=== PATIENT | female | born 1945 | race Caucasian/White ===

== ENCOUNTER 2022-05-31 12:07 | Emergency (ER) | payer MEDICARE, SELFPAY ==
[2022-05-31 12:17] VITALS: BP 130/63; PULSE 78; RESP 20; TEMP 36.8; O2SAT 98; BMI 25.1
--- NOTE | 2022-05-31 12:35 | ED.NURSE ---
Addendum entered by Floresita Elam RN 05/31/22 12:46: Closer examination of tele monitor does show p waves, not atrial fibrillation Original Note: EKG done on arrival was NSR, while on plant assigner patient flipped a-fib.
[2022-05-31 12:43] VITALS: O2SAT 98
--- NOTE | 2022-05-31 12:46 | ED.GENADULT ---
HPI - General Adult General Chief complaint: Arrhythmia/Palpitations Stated complaint: Heart palpitations Time Seen by Provider: 05/31/22 12:17 Source: patient Mode of arrival: ambulatory Limitations: no limitations History of Present Illness HPI narrative: 77-year-old female coming in today concerned about a fast heart rate. She states that she has a little cuff that she bought at [employer], she uses it in the morning to check her blood pressure and heart rate. For the last several days the cuff has been telling her that she is in ?the danger zone unclear if this is in regards to her heart rate or her blood pressure. Patient does not feel that her heart is pounding, does not feel like it is going fast, does not feel like it is skipping a beat. She does not feel short of breath. She does state that she feels more tired than usual and she has felt this way for about a year. She describes it as having less pep than she used to. She denies any fevers or chills. No recent illness. She denies any chest pain. She does not exercise regularly. Patient states that she had atrial fibrillation once before, it appears that this was in 2019 and she converted back to normal sinus rhythm without any intervention right before reaching the ER. She does not believe she has had any episodes of atrial fibrillation since. She is quite symptomatic when that occurred back in 2019 with feeling dizzy and lightheaded, and with feeling her heart pounding in her chest. She denies any of those things today or for the last several days. Related Data Home Medications Medication Instructions Recorded Confirmed albuterol sulfate 90 mcg/actuation 2 puff inhalation Q4H PRN 05/31/22 05/31/22 aerosol inhaler azelastine 137 mcg (0.1 %) nasal 1 spray intranasal DAILY PRN 05/31/22 05/31/22 spray aerosol baclofen 10 mg tablet 10 mg PO DAILY PRN 05/31/22 05/31/22 mometasone 100 mcg/actuation HFA 2 puff inhalation Q12H PRN 05/31/22 05/31/22 aerosol inhaler (Asmanex HFA) Allergies Allergy/AdvReac Type Severity Reaction Status Date / Time No Known Drug Allergies Allergy Verified 05/31/22 12:24 Review of Systems Status of ROS: Reports: 10 or more systems reviewed and unremarkable except as noted in History and below [facility] Social History Smoking Status: Never smoker Do you use any of these nicotine containing products: None How often do you have a drink containing alcohol: never AUDIT-C Alcohol total score: 0 Non-prescribed substance use: denies use Exam Narrative: Exam Narrative: Well-nourished well-developed patient in no acute distress. Alert and oriented. Answers questions appropriately. Mood and affect are appropriate. Thoughts are goal oriented and rational. No tangential or magical thinking noted. Patient speaks in full sentences without needing to catch their breath. HEENT: Normocephalic atraumatic. Pupils are equally round reactive to light. Extraocular muscles are intact. Conjunctivae are moist without any icterus noted. Moist mucous membranes. Neck is soft without any lymphadenopathy or thyromegaly. No masses are appreciated. Cardiovascular: Heart is regular rate and rhythm S1 and S2 are present without any murmurs. Lungs: Clear to auscultation bilaterally no wheezes rhonchi or rales are appreciated. Patient takes deep breaths without any discomfort. Abdomen: Soft and nontender nondistended with normal bowel sounds. Extremities: Bilateral lower extremities are without edema. Normal DP and PT pulses. Skin: Well perfused without any obvious rashes. Const: Vital Signs, click to edit/add: Vital Signs - 24 hr 05/31/22 12:17 05/31/22 12:43 05/31/22 13:00 Temperature 98.2 F Pulse Rate [Left P ulse Oximeter] 78 60 Respiratory Rate 20 14 Blood Pressure [Le ft Upper Arm] 130/63 118/72 Pulse Oximetry 98 98 96 Oxygen Delivery Me thod Room Air Course Course Hospital Course: Patient remained asymptomatic while she was here. Her initial EKG showed normal sinus rhythm with a pulse of 66. The cardia monitor was quite sensitive today in with any movement would show a lot of a interference, therefore we did repeat an EKG which showed again normal sinus rhythm pulse 59. Never while she was here did she have a pulse faster than the upper 70s. Her lab work was unremarkable. Her blood pressure was within normal limits. Vital Signs Vital signs: Initial Vital Signs Temperature 98.2 F 05/31/22 12:17 Temperature Source Temporal Artery Scan 05/31/22 12:17 Pulse Rate 78 05/31/22 12:17 Respiratory Rate 20 05/31/22 12:17 Blood Pressure 130/63 05/31/22 12:17 Blood Pressure Mean 85 05/31/22 12:17 Blood Pressure Position Sitting 05/31/22 12:17 Pulse Oximetry 98 05/31/22 12:17 Oxygen Delivery Method 05/31/22 12:17 Vital Signs Temperature 98.2 F 05/31/22 12:17 Pulse Rate 78 05/31/22 12:17 Respiratory Rate 20 05/31/22 12:17 Blood Pressure 130/63 05/31/22 12:17 Pulse Oximetry 98 05/31/22 12:17 Oxygen Delivery Method 05/31/22 12:17 Temperature 98.2 F 05/31/22 12:17 Pulse Rate 60 05/31/22 13:00 Respiratory Rate 14 05/31/22 13:00 Blood Pressure 118/72 05/31/22 13:00 Pulse Oximetry 96 05/31/22 13:00 Oxygen Delivery Method 05/31/22 12:17 Medical Decision Making MDM Narrative Medical decision making narrative: 77-year-old female with fatigue for a year-likely normal given her age. It did request that she follow up with her primary care provider to discuss these symptoms further. Who presented because the blood pressure and heart monitor cuff that she purchased at [facility] is likely malfunctioning. She is reassured that her blood pressure and pulse have been normal while she was here. Medical Records Medical records reviewed: Yes I reviewed the patient's medical records Lab Data Lab results reviewed: Yes I reviewed the patient's lab results Labs: Lab Results 05/31/22 05/31/22 05/31/22 Range/Units 13:00 13:00 13:00 WBC 3.25 L (4.50-11.00) K/uL RBC 4.02 (4.00-5.20) m/uL Hgb 12.2 (12.0-16.0) gm/dL Hct 37.3 (33.0-51.0) % MCV 93 (80-100) fL MCH 30 (26-34) pg MCHC 33 (32-36) gm/dL RDW Coeff of Destiney 12.4 (11.5-15.5) % Plt Count 192 (140-440) K/uL Neut % (Auto) 57.5 (42.0-72.0) % Lymph % (Auto) 28.3 (20-44) % [place] % (Auto) 11.1 H (0.0-11.0) % Eos % (Auto) 2.5 (0.0-7.0) % Baso % (Auto) 0.6 (0.0-3.0) % Neut # (Auto) 1.90 (1.7-7.0) K/uL Lymph # (Auto) 0.90 (0.90-2.90) K/uL [place] # (Auto) 0.40 (0.00-0.90) K/UL Eos # (Auto) 0.10 (0.00-0.50) K/uL Baso # (Auto) 0.00 (0.00-0.30) K/uL Abs Immat Gran (auto) 0.00 (0.00-0.30) K/uL Sodium 138 (135-149) mmol/L Potassium 4.1 (3.6-5.1) mmol/L Chloride 106 (96-114) mmol/L Carbon Dioxide 25 (20-32) mmol/L BUN 17 (7-30) mg/dL Creatinine 0.7 (0.5-1.5) mg/dL Estimated Creat Clear 45.82 Estimated GFR 89 ml/min Glucose 94 (60-115) mg/dL Lactate 1.4 (0.5-1.9) mmol/L Calcium 9.3 (8.4-10.6) mg/dL Total Bilirubin 0.4 (0.1-1.5) mg/dL Direct Bilirubin 0.1 (0.0-0.5) mg/dL AST 20 (12-35) U/L ALT 11 (4-35) U/L Alkaline Phosphatase 79 (40-150) U/L Troponin I < 0.01 L (0.01-0.04) ng/mL Total Protein 6.8 (6.0-8.3) g/dL Albumin 4.0 (3.3-5.0) g/dL TSH (0.270-4.20) uIU/mL 05/31/22 Range/Units 13:00 WBC (4.50-11.00) K/uL RBC (4.00-5.20) m/uL Hgb (12.0-16.0) gm/dL Hct (33.0-51.0) % MCV (80-100) fL MCH (26-34) pg MCHC (32-36) gm/dL RDW Coeff of Destiney (11.5-15.5) % Plt Count (140-440) K/uL Neut % (Auto) (42.0-72.0) % Lymph % (Auto) (20-44) % [place] % (Auto) (0.0-11.0) % Eos % (Auto) (0.0-7.0) % Baso % (Auto) (0.0-3.0) % Neut # (Auto) (1.7-7.0) K/uL Lymph # (Auto) (0.90-2.90) K/uL [place] # (Auto) (0.00-0.90) K/UL Eos # (Auto) (0.00-0.50) K/uL Baso # (Auto) (0.00-0.30) K/uL Abs Immat Gran (auto) (0.00-0.30) K/uL Sodium (135-149) mmol/L Potassium (3.6-5.1) mmol/L Chloride (96-114) mmol/L Carbon Dioxide (20-32) mmol/L BUN (7-30) mg/dL Creatinine (0.5-1.5) mg/dL Estimated Creat Clear Estimated GFR ml/min Glucose (60-115) mg/dL Lactate (0.5-1.9) mmol/L Calcium (8.4-10.6) mg/dL Total Bilirubin (0.1-1.5) mg/dL Direct Bilirubin (0.0-0.5) mg/dL AST (12-35) U/L ALT (4-35) U/L Alkaline Phosphatase (40-150) U/L Troponin I (0.01-0.04) ng/mL Total Protein (6.0-8.3) g/dL Albumin (3.3-5.0) g/dL TSH 1.390 (0.270-4.20) uIU/mL ECG Data Attestation: I personally reviewed and interpreted this ECG as follows: (Normal sinus rhythm, pulse 66) Discharge Plan Discharge Clinical Impression: Normal blood pressure, Fatigue, Normal pulse Patient Disposition: Home, Self-Care Condition: Stable Additional Instructions: No abnormalities were noted while you were monitored in the hospital today. Your pulse and blood pressure have remained entirely normal. Your lab work was reassuring. As far as your fatigue this is likely normal given your age, however I do recommend that you follow-up with your primary care provider to discuss any further testing that they may recommend. Prescriptions: No Action baclofen 10 mg tablet 10 mg PO DAILY PRN albuterol sulfate 90 mcg/actuation HFA aerosol inhaler 2 puff INHALATION Q4H PRN azelastine 137 mcg (0.1 %) aerosol,spray 1 spray INTRANASAL DAILY PRN Asmanex HFA 100 mcg/actuation HFA aerosol inhaler 2 puff INHALATION Q12H PRN Follow Up/Referrals: Zahira Cason MD [Primary Care Provider] - Stand Alone Forms: [employer] Info Instructions
[2022-05-31 13:00] VITALS: BP 118/72; PULSE 60; RESP 14; O2SAT 96
[2022-05-31 13:09] LABS: Lactate* 1.4 mmol/L (0.5-1.9)
[2022-05-31 13:12] LABS: Basophils Percent Auto 0.6 % (0.0-3.0); Eosinophils Percent Auto 2.5 % (0.0-7.0); Hematocrit 37.3 % (33.0-51.0); Hemoglobin* 12.2 gm/dL (12.0-16.0); Lymphocytes Percent Auto 28.3 % (20-44); Mean Corpuscular HGB Conc 33 gm/dL (32-36); Mean Corpuscular Hemoglobin 30 pg (26-34); Mean Corpuscular Volume 93 fL (80-100); Monocytes Percent Auto 11.1 % (0.0-11.0); Neutrophils Percent Auto 57.5 % (42.0-72.0); Platelet Count* 192 K/uL (140-440); RDW Coefficient of Variation % 12.4 % (11.5-15.5); Red Blood Count 4.02 m/uL (4.00-5.20); White Blood Count* 3.25 K/uL (4.50-11.00)
[2022-05-31 13:18] LABS: Slide Review Reflex No
[2022-05-31 13:27] LABS: Chloride* 106 mmol/L (96-114); Potassium* 4.1 mmol/L (3.6-5.1); Sodium* 138 mmol/L (135-149)
[2022-05-31 13:29] LABS: Alkaline Phosphatase* 79 U/L (40-150); Aspartate Amino Transferase* 20 U/L (12-35); Bilirubin Direct* 0.1 mg/dL (0.0-0.5); Bilirubin Total* 0.4 mg/dL (0.1-1.5); Blood Urea Nitrogen* 17 mg/dL (7-30); Carbon Dioxide* 25 mmol/L (20-32); Creatinine* 0.7 mg/dL (0.5-1.5); Est. Creatinine Clearance* 45.82; Estimated Glomerular Filt Rate 89 ml/min; Glucose* 94 mg/dL (60-115); Total Protein* 6.8 g/dL (6.0-8.3)
--- OUTSIDE RECORDS SUMMARY | 2022-05-31 13:29 | XMS_ITS | Clinical Summary ---
:1945 Author Organization [email or web address] [facility] Address [place] [address] Care Team Providers Name Role Phone Ollie Lozano MD Unavailable Jag Koo PT Unavailable Unavailable Zahira Cason MD Primary Care Provider Allergies Active Allergy Reactions Severity Noted Date Comments Dust Mites 11/07/2008 Grass Pollen Cough 03/11/2016 Tree And Shrub Pollen Cough 03/11/2016 Medications Medication Sig Dispensed Refills Start End Date Status Date DME Firm mattress to 1 Device 0 Act lisha support the 0 lumbar degenerative disease. 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 (M51.37) lumbosacral (M47.816) intervertebral disc, Lumbar facet arthropathy albuterol HFA USE 2 8.5 g 1 Active (PRO-AIR; INHALATIONS FOUR 2 VENTOLIN; TIMES A DAY IF PROVENTIL) 90 NEEDED mcg/actuation inhalerIndications : Mild intermittent asthma without complication albuterol HFA Inhale 2 Puffs 3 Each 2 A ctive (PRO-AIR; by mouth every 4 2 VENTOLIN; hours if needed PROVENTIL) 90 for Shortness of mcg/actuation Breath 1st inhalerIndications choice (cough). : Cough mometasone Inhale by mouth. 3 Each 0 Ac tive (Asmanex HFA) 100 2 mcg/actuation HFAAIndications: Cough azelastine 137 Inhale 1 Tillson 90 mL 3 Active mcg/actuation into affected 2 (ASTELIN) nasal nostril(s) 2 sprayIndications: times daily. Cough mometasone 100 Inhale by mouth. 3 Each 3 Active mcg/actuation 2 puffs twice 2 HFAAIndications: daily Cough baclofen Take 1 Tablet 90 tablet. 3 Activ e (LIORESAL) 10 mg (10 mg) by mouth 2 tabletIndications: once daily if Degeneration of needed (muscle lumbar or spasm). lumbosacral intervertebral disc, Lumbar facet arthropathy traMADoL (ULTRAM) Take 1 Tablet 24 tablet. 0 Active 50 mg (50 mg) by mouth 2 tabletIndications: every 6 hours if Lumbar facet needed for Pain. arthropathy baclofen Take 1 Tablet 90 tablet. 3 05/15/20 Disco ntinued (LIORESAL) 10 mg (10 mg) by mouth 1 22 (Reorder tabletIndications: once daily if (E-cancel not Degeneration of needed. sent )) lumbar or lumbosacral intervertebral disc, Lumbar facet arthropathy traMADoL (ULTRAM) Take 1 Tablet 24 tablet. 0 0 Discontinued 50 mg (50 mg) by mouth 1 22 (Re order tabletIndications: every 6 hours if (E-cancel not Lumbar facet needed. sent)) arthropathy Active Problems Problem Noted Date Mild depression 07/05/2020 Paroxysmal atrial fibrillation 08/29/2019 Overview: Fall 2018 - started Elliquis. Gi bleed - colonoscopy polyps Elliquis stopped 08/24/2019 see cardiology notes Mixed hyperlipidemia 08/03/2012 Degeneration of cervical intervertebral disc 2 Lumbar facet arthropathy 02/06/2011 Migraine 01/08/2010 Benign neoplasm of colon 11/10/2008 Overview: Colonoscopy 10/2008 polyps repeat in 3 ye ars Colonoscopy 02/2016 polyp repeat in 5 yea rs Colonoscopy 06/2019 polyps, repeat in 5 years SVT (supraventricular tachycardia) 09/26/2008 Overview: A. Paroxysmal Chest pain, unspecified 09/26/2008 Overview: A. Atypical Insomnia, Unspecified 04/27/2008 Degeneration of lumbar or lumbosacral intervertebral d isc 04/24/2008 Unspecified asthma(493.90) 03/23/2007 Rosacea 03/23/2007 Symptomatic menopausal or female climacteric states Resolved Problems Problem Noted Date Resolved Date Backache, unspecified 04/24/2008 Encounters Date Type Specialty Care Team Description 05/15/2022 Ollie Blancas MD 03/25/2022 Nurse/Clinic Staff Immunizat ion/Injection Only (COVID-19 #4) 03/25/2022 Travel from Last 3 Months Immunizations Name Administration Dates Next Due COVID-19 vaccine (Jamgle 03/25/2022 30mcg/0.3mL) 12YO+ JOSE LUIS-SUCROSE PF, MDV COVID-19 vaccine ([facility]gle 08/13/2021, 11/07/2020, 30mcg/0.3mL) PF, MDV HepA-HepB (Twinrix) 03/27/2006, 09/22/2005, 08/19/2005 Influenza, IIV3 (Age >=3 years) 05/21/2010 Influenza, Inactivated AIIV4 (Age 65+ 07/25/2021, 07/05/2020 Years) Preserv Free Pneumococcal Poly,23-Valent (Pneumovax) 07/05/2020 Td (Age >=7 Years) 07/18/2003 Tdap 09/24/2010 Typhoid (injectable) 11/27/2010 Family History Medical History Relation Name Comments Heart Disease Father heavy smoker Cancer Maternal Aunt ovarian cancer a t age 89 yrs. Diabetes Mother later in life Cancer-breast Other Niece Heart Disease Paternal Aunt Other Sister emphysema, diagn osed 67yr, heavy smoker Cancer-ovarian No Family History Relation Name Status Comments Father Maternal Aunt Mother Other Niece Alive Paternal Aunt Sister Social History Tobacco Use Types Packs/Day Years Used Date Never Smoker Smokeless Tobacco: Never Used Tobacco Cessation: Counseling Given: Yes Alcohol Use Standard Drinks/Week Comments Yes 0 (1 standard drink = 0.6 oz pure alcoho l) twice weekly Alcohol Habits Answer Date Recorded How often do you have a drink containing alcohol? Monthly or less 06/21/2019 How many drinks containing alcohol do you have on a 1 or 2 06/21/2019 typical day when you are drinking? How often do you have six or more drinks on one Never 06/21/2019 occasion? Comment: twice weekly 12/12/2021 Sex Assigned at Date Recorded Not on file Obstetrics History Para Term AB IAB SAB Ectopic Multiple Living Live Births 2 1 1 1 1 Date Outcome GA Total Labor/2nd/3rd Weight Sex Delivery Anes PTL Lindsay A 1 A5 Name Clin Labor Ectopic Para Last Filed Vital Signs Vital Sign Reading Time Taken Comments Blood Pressure 117/71 12/30/2021 2:13 PM CDT tower Pulse 81 12/30/2021 2:13 PM CDT Temperature 37.2 ??C (98.9 ??F) 09/26/2021 1:07 PM RISK CONTROL ANALYST Respiratory Rate 16 08/24/2019 11:06 AM RISK CONTROL ANALYST Oxygen Saturation 100% 12/30/2021 2:13 PM CDT Inhaled Oxygen Concentration - - Weight 74.8 kg (164 lb 12.8 oz) 12/30/2021 2:13 PM CDT Height 166.5 cm (5' 5.55) 03/06/2021 3:15 PM CDT Body Mass Index 26.97 03/06/2021 3:15 PM CDT Plan of Treatment Upcoming Encounters Date Type Specialty Care Team Description 07/07/2022 Office Visit Ollie Lozano MD [address] [place], [place] [address] (Wo rk) Health Maintenance Due Date Last Done Comments Zoster (shingles) series for age 0702/20/1995 50+ (1 of 2) DEXA/DXA scan for age 65+ 2010 Tetanus booster 09/24/2020 09/24/2010, 07/18/2003 Pneumococcal series for age 65+ (2 07/05/2021 07/05/2020 - PCV) BMI (ht and wt on same day) for 03/06/2022 03/06/2021, 01/03/2020, age 18+ 08/12/2019 Depression screening for age 12+ 03/06/2022 03/06/2021, , 01/07/2018, Additional history exists Medicare Wellness for age 65+ 03/06/2022 03/06/2021, 2015, 08/03/2012 Influenza for age 65+ 04/17/2022 07/25/2021, 07/05/2020, 05/21/2010 COVID-19 vaccine series (5 - 05/20/2022 03/25/2022, 021, Booster for Pfizer series) 11/07/2020, Additiona l history exists Tdap Completed 09/24/2010 Hepatitis C screening for age Completed 03/06/2021 18-79 Results Not on filefrom Last 3 Months Insurance Payer Benefit Plan / Subscriber ID Effective Dates Phone Addre ss Type Group WC WORKERS WC LIBERTY [id number] 2020-Prese [phone] [address] [place] [address] UCARE MR ARE MEDICARE [id number] 2019-Presen PO [address] [place] [address] [facility] Effective for [address] ADVANT[address] [place] [address] Care Teams Export Sales Assistant Relationship Specialty Start Date End Date Zahira Cason MD PCP - General Family Practice 09/09/18 [address] [place] [address] Ollie Lozano MD Sports Medicine 01/22/16 [address] [place] [address] Jag Koo, PT Physical Therapist 01/22/16
[2022-05-31 13:30] LABS: Alanine Aminotransferase* 11 U/L (4-35); Calcium* 9.3 mg/dL (8.4-10.6)
[2022-05-31 13:47] LABS: Troponin I* < 0.01 ng/mL (0.01-0.04)
[2022-05-31 14:00] VITALS: BP 129/70; PULSE 58; RESP 12; O2SAT 98
== END 2022-05-31 14:47 | disposition home or self-care (01) ==
PROVIDERS: Emergency Provider Family Medicine; PCP Family Medicine
DX: R53.83 Other fatigue (principal)
CPT/HCPCS: 36415; 80048; 80076; 83605; 84443; 84484; 85025; 93005; 94761; 99284

== ENCOUNTER 2023-02-02 12:15 | Emergency (ER) | payer MEDICARE, SELFPAY ==
[2023-02-02 12:37] VITALS: BP 136/71; PULSE 59; RESP 16; TEMP 36.6; O2SAT 100; BMI 25.0
--- NOTE | 2023-02-02 14:30 | CRLHL7_ITS ---
For Patients: As a result of the Century Cures Act, medical imaging exams and procedure reports are released immediately into your electronic medical record. You may view this report before your referring provider. If you have questions, please contact your health care provider. INDICATION: Injury preceding week with worsening headache COMPARISON: None TECHNIQUE: CT examination of the head was performed as axial sections without intravenous contrast. Images were obtained from the vertex of the skull through the skull base. Please note that all CT scans at this facility use dose modulation, iterative reconstruction, and/or weight-based dosing when appropriate to reduce radiation dose to as low as reasonably achievable. FINDINGS: The brain shows no sign of mass lesion, mass effect, hemorrhage, or edema. There are involutional changes. There is mild cortical atrophy and there is mild white matter disease. There is no hydrocephalus. The visualized portions of the orbits are normal in appearance. The osseous structures are normal in appearance with no sign of abnormality in the skull base or calvarium. Incidental sinus inflammatory disease IMPRESSION: Involutional changes consisting volume loss and white matter disease. No posttraumatic findings. Incidental sinus mucosal inflammatory disease. Please note that all CT scans at this facility use dose modulation, iterative reconstruction, and/or weight-based dosing when appropriate to reduce radiation dose to as low as reasonably achievable. Dictated by Davey Henson MD @ 02/02/2023 3:38:05 PM (Electronically Signed)
--- NOTE | 2023-02-02 14:38 | ED_ITS ---
HPI - General Adult General Chief complaint: Head Injury/Pain Stated complaint: Hit head last week Time Seen by Provider: 02/02/23 13:39 History of Present Illness HPI narrative: 77-year-old woman presenting to the emergency department with concern of head injury. One week ago fell from her bed hitting her nightstand. Struck the right forehead. Did have 2 nice lumps but otherwise felt well. More recently has developed sense of fullness through the right side of her head in particular in into her neck. She is not anticoagulated. No diplopia. No visual affect otherwise. No nausea. And not particularly headache more this pressure is noted. Related Data Home Medications Medication Instructions Recorded Confirmed albuterol sulfate 90 mcg/actuation 2 puff inhalation Q4H PRN 05/31/22 02/02/23 aerosol inhaler azelastine 137 mcg (0.1 %) nasal 1 spray intranasal DAILY PRN 05/31/22 02/02/23 spray aerosol baclofen 10 mg tablet 10 mg PO DAILY PRN 05/31/22 02/02/23 mometasone 100 mcg/actuation HFA 2 puff inhalation Q12H PRN 05/31/22 02/02/23 aerosol inhaler (Asmanex HFA) Allergies Allergy/AdvReac Type Severity Reaction Status Date / Time No Known Drug Allergies Allergy Verified 02/02/23 12:37 Review of Systems Status of ROS: Reports: 6 or more systems reviewed and unremarkable except as noted in History and below [facility] Social History Smoking Status: Never smoker Do you use any of these nicotine containing products: None Second hand tobacco smoke exposure: No How often do you have a drink containing alcohol: 2-4 times a month How many standard drinks containing alcohol do you have on a typical day: 1 or 2 AUDIT-C Alcohol total score: 2 Non-prescribed substance use: denies use service: No Exam Narrative: Exam Narrative: Pleasant. NAD. Of good energy. Moving all extremities out difficulty. Well perfused peripherally. Breathing easily. Neck is supple and not tender though maybe a little sore on repeat exam to palpation in the bilateral trapezius and lower paracervical musculature. Does not have midline neck tenderness. There is yellowish purple bruising over the right forehead. I do not appreciate much swelling here. This is in an area of about 4 cm. Const: Vital Signs, click to edit/add: Vital Signs - 24 hr 02/02/23 12:37 Temperature 97.9 F Pulse Rate [Pulse Oximeter] 59 L Respiratory Rate 16 Blood Pressure [Ri ght Upper Arm] 136/71 Pulse Oximetry 100 Oxygen Delivery Me thod Room Air Documenting provider has reviewed patient's vital signs: yes Course Vital Signs Vital signs: Initial Vital Signs Temperature 97.9 F 02/02/23 12:37 Temperature Source Temporal Artery Scan 02/02/23 12:37 Pulse Rate 59 L 02/02/23 12:37 Pulse Rhythm Regular 02/02/23 12:37 Pulse Strength 3+ Normal 02/02/23 12:37 Respiratory Rate 16 02/02/23 12:37 Blood Pressure 136/71 02/02/23 12:37 Blood Pressure Mean 92 02/02/23 12:37 Blood Pressure Position Sitting 02/02/23 12:37 Pulse Oximetry 100 02/02/23 12:37 Oxygen Delivery Method Room Air 02/02/23 12:37 Vital Signs Temperature 97.9 F 02/02/23 12:37 Pulse Rate 59 L 02/02/23 12:37 Respiratory Rate 16 02/02/23 12:37 Blood Pressure 136/71 02/02/23 12:37 Pulse Oximetry 100 02/02/23 12:37 Oxygen Delivery Method Room Air 02/02/23 12:37 Temperature 97.9 F 02/02/23 12:37 Pulse Rate 59 L 02/02/23 12:37 Respiratory Rate 16 02/02/23 12:37 Blood Pressure 136/71 02/02/23 12:37 Pulse Oximetry 100 02/02/23 12:37 Oxygen Delivery Method Room Air 02/02/23 12:37 Medical Decision Making MDM Narrative Medical decision making narrative: Think it is reasonable to reimage. Certainly could have evolved intracranial hemorrhage. On review of head CT by me I see no acute abnormalities. Did depart emergency department prior to radiology over-read. Radiology over-read otherwise noting mucosal sinus disease. Monitored without event in the emergency department. See patient discharge plan Medical Records Medical records reviewed: Yes I reviewed the patient's medical records Discharge Plan Discharge Clinical Impression: Closed head injury, Cervical sprain Patient Disposition: Home, Self-Care Condition: Stable Additional Instructions: Gentle stretching a few times daily as demonstrated/discussed. I will call you if something seems amiss in your head CT. Prescriptions: No Action baclofen 10 mg tablet 10 mg PO DAILY PRN albuterol sulfate 90 mcg/actuation HFA aerosol inhaler 2 puff INHALATION Q4H PRN azelastine 137 mcg (0.1 %) aerosol,spray 1 spray INTRANASAL DAILY PRN Asmanex HFA 100 mcg/actuation HFA aerosol inhaler 2 puff INHALATION Q12H PRN Follow Up/Referrals: Zahira Cason MD [Referring] - Stand Alone Forms: [facility] Info Instructions
== END 2023-02-02 15:55 | disposition home or self-care (01) ==
PROVIDERS: Emergency Provider Family Medicine; PCP Student in an Organized Health Care Education/Training Program
DX: S16.1XXA Strain of muscle, fascia and tendon at neck level, initial encounter (principal); S09.90XA Unspecified injury of head, initial encounter; W18.09XA Striking against other object with subsequent fall, initial encounter
CPT/HCPCS: 70450; 99283; 99284

== ENCOUNTER 2023-09-23 18:05 | Emergency (ER) | payer MEDICARE, SELFPAY ==
[2023-09-23 18:52] VITALS: BP 154/63; PULSE 77; RESP 16; TEMP 36.3; O2SAT 99; BMI 24.3
--- NOTE | 2023-09-23 19:50 | ED_ITS ---
HPI - General Adult General Date Seen: 09/23/23 Chief complaint: Neuro Symptoms/Altered Deficit Stated complaint: Looking for head xray-she has hitting pain in L Time Seen by Provider: 09/23/23 19:50 History of Present Illness HPI narrative: 78-year-old female presenting to the ER today for evaluation of a left-sided headache. History is obtained from the patient, but is limited because she has a very poor historian and may have dementia. Per medical records: She was seen here in the ER last January for a head injury. Apparently had fallen 1 week prior to presentation and hit her head against her 9 hand, at that visit. According to the physician notes she was pleasant and in no distress. No mention of any confusion or disorientation. Head CT showed no evidence for any traumatic injury. She did so involutional changes and volume loss and white ma tter disease consistent with aging. She also had sinus mucosal inflammation. She was seen in the ER in May 2022 for fatigue. At that time her notes indicate that she was alert and oriented. Per the patient: History is very limited because the patient is a confusing historian. She does not even know what day it is today or what month it is. The best history I can get from her is as follows. She has been having intermittent headaches affecting the left side of her head, in the parietal region just above her left ear. They come ago without warning. They are very intense and sharp when they occur. They have been occurring ?off and on for a while. ? It sounds like maybe every couple of days for the past couple of weeks. I cannot get a clear pattern but it does sound like they are positional or related to any particular activity. They are fairly brief. They usually last just a few seconds or a few minutes. They feel like a stabbing. The patient says she is not having any other symptoms. When asked directly, she says no visual symptoms. No change in hearing. No tinnitus. No associated neck pain. She does recall that she apparently had a fall and injured her neck a couple of years ago(but is not having pain currently). No known head injury. No known fall. She does not know what medication she is on. She says she thinks she has a history of AFib, but does not know if she is anticoagulated. She lives alone. [place] the [place] out outside of [place] and is lived [place] horses[place] for 50 years. She does not think she has a carbon monoxide detector. No pain or numbness or tingling down her arms or legs. No focal weakness in her arms or legs. Her gait is steady today but she says sometimes she feels off balance especially when she gets up to go to the bathroom tonight. No abdominal pain. No trouble with urination. No cough. She does not feel short of breath. No chest pain. History by phone from her sister Jc : Does probably have mild dementia but is functional and able to care for herself at home. Is sometimes ?dingy. ?. Always pays her bills on time. This degree of disorientation (not knowing the date or the month) is highly unusual for her it is a change from when he saw each other recently. Related Data Home Medications Medication Instructions Recorded Confirmed albuterol sulfate 90 mcg/actuation 2 puff inhalation Q4H PRN 05/31/22 09/23/23 aerosol inhaler azelastine 137 mcg (0.1 %) nasal 1 spray intranasal DAILY PRN 05/31/22 02/02/23 spray aerosol baclofen 10 mg tablet 10 mg PO DAILY PRN 05/31/22 09/23/23 mometasone 100 mcg/actuation HFA 2 puff inhalation Q12H PRN 05/31/22 02/02/23 aerosol inhaler (Asmanex HFA) Allergies Allergy/AdvReac Type Severity Reaction Status Date / Time No Known Drug Allergies Allergy Verified 09/23/23 18:49 PFSH PFSH Social History Smoking Status: Never smoker Do you use any of these nicotine containing products: None Second hand tobacco smoke exposure: No How often do you have a drink containing alcohol: 2-4 times a month How many standard drinks containing alcohol do you have on a typical day: 1 or 2 AUDIT-C Alcohol total score: 2 Non-prescribed substance use: denies use service: No Exam Narrative: Exam Narrative: Constitutional: Appears well-developed and well-nourished. Alert. Conversant and very polite. At 1st, the patient seems very normal and conversant. However with further conversation, it becomes apparent that she clearly has impaired memory. Non toxic. HENT: Head: Atraumatic. No depressed skull fracture, Raccoon Eyes, Richards's sign, or hemotympanum. Face normal. TMs normal Nose: Nose normal. No purulent drainage Mouth/Throat: Oral mucosa is clear and moist. no trismus. Pharynx normal. Tonsils symmetric. No tonsillar enlargement, erythema, or exudate. Eyes: Conjunctivae normal. EOM normal. Pupils equal, round, and reactive to light. No scleral icterus. Neck: Normal range of motion. Neck supple. No tracheal deviation present. No posterior midline tenderness or step-off. No stiffness. No carotid bruits. Cardiovascular: Normal rate, regular rhythm. No gallop. No friction rub. No murmur heard. Symmetric radial artery pulses Pulmonary/Chest: Effort normal. No stridor. No respiratory distress. No wheezes. No rales. No rhonchi . No tenderness. Abdominal: Soft. Bowel sounds normal. No distension. No mass. No tenderness. No rebound. No guarding. No CVA tenderness. Musculoskeletal: No C, T, L-spine tenderness. RUE: Normal range of motion. No tenderness. No deformity LUE: Normal range of motion. No tenderness. No deformity RLE: Normal range of motion. No edema. No tenderness. No deformity LLE: Normal range of motion. No edema. No tenderness. No deformity Lymph: No cervical adenopathy. Neurological: Alert and oriented to person, but she is not oriented to date or month. Attention normal. GCS 15. Memory is impaired. She is not really able to describe events that happened today.. Speech fluent. Cognition is impaired. She is not able to do simple addition or subtraction. SLUMS score =9 (abnormal, indicates dementia). Cranial Nerves intact II-XII except I did not formally test gag or visual acuity. EOMI. Palate elevates symmetrically and tongue protrudes in the midline. Strength: 5/5 trapezius on the right and left 5/5 deltoid on the right and left 5/5 biceps on the right and left 5/5 triceps on the right and left 5/5 grain merchandiser on the right and left 5/5 thumb opposition on the right and le ft 5/5 finger abduction on the right and le ft 5/5 hip flexors (L3) on the right and le ft 5/5 quadriceps (L4) on the right and lef t 5/5 tibialis anterior on the right and l eft 5/5 EHL (L5) on the right and left 5/5 gastrocnemius (S1) on the right and left 5/5 hamstring on the right and left Sensation intact to light touch in both upper extremities (C4-T1) Sensation intact to light touch in Both lower extremities (L4-S1). Finger to nose and coordination normal. Gait normal and she is able to ambulate steadily under her own power from her hospital bed out to the ER hallway and back. Normal strength in both upper and lower extremities. CN II-VII intact. No sensory deficit. GCS eye subscore is 4. GCS verbal subscore is 5. GCS motor subscore is 6. Normal coordination . Normal finger to nose. She is not able to spell [place]. When asked her to attempt serial sevens, she simply says that she is not good at math and will not try. She is able to recall 3/5 objects at 1 minute. She is not able to do reversed digit recollec tion. Skin: Skin is warm and dry. No rash noted. No pallor. Normal capillary refill. Psychiatric: Normal mood. Normal affect. She is smiling and very polite. She jokes and makes light of many of her mistakes. For instance when she does not know the day or the month, she just chuckles that away. Const: Vital Signs, click to edit/add: Vital Signs - 24 hr 09/23/23 18:52 09/23/23 19:51 09/23/23 22:22 Temperature 97.4 F L Pulse Rate [Pulse Oximeter] 77 77 75 Respiratory Rate 16 Blood Pressure [Ri ght Upper Arm] 154/63 H 164/83 H 178/82 H Pulse Oximetry 99 98 99 Oxygen Delivery Me thod Room Air Room Air Room Air Course Vital Signs Vital signs: Initial Vital Signs Temperature 97.4 F L 09/23/23 18:52 Temperature Source Temporal Artery Scan 09/23/23 18:52 Pulse Rate 77 09/23/23 18:52 Respiratory Rate 16 09/23/23 18:52 Blood Pressure 154/63 H 09/23/23 18:52 Blood Pressure Mean 93 09/23/23 18:52 Blood Pressure Position Sitting 09/23/23 18:52 Pulse Oximetry 99 09/23/23 18:52 Oxygen Delivery Method Room Air 09/23/23 18:52 Vital Signs Temperature 97.4 F L 09/23/23 18:52 Pulse Rate 77 09/23/23 18:52 Respiratory Rate 16 09/23/23 18:52 Blood Pressure 154/63 H 09/23/23 18:52 Pulse Oximetry 99 09/23/23 18:52 Oxygen Delivery Method Room Air 09/23/23 18:52 Temperature 97.4 F L 09/23/23 18:52 Pulse Rate 75 09/23/23 22:22 Respiratory Rate 16 09/23/23 18:52 Blood Pressure 178/82 H 09/23/23 22:22 Pulse Oximetry 99 09/23/23 22:22 Oxygen Delivery Method Room Air 09/23/23 22:22 Medications Administered Medications: Discontinued Medications Generic Name Dose Route Start Last Admin Trade Name Abnerq PRN Reason Stop Dose Admin Cephalexin HCl 500 mg 09/23/23 22:11 09/23/23 23:38 Cephalexin 500 Mg Capsule PO 09/23/23 22:12 Not Given ONCE ONE Haloperidol Lactate 1.25 mg 09/23/23 22:24 09/23/23 22:39 Haloperidol 5 Mg/Ml Inj IV 09/23/23 22:25 1.25 mg ONCE ONE Administration Ceftriaxone Sodium 1 gm/ 100 mls @ 200 mls/hr 09/23/23 22:24 09/23/23 23:18 Sodium Chloride IVPB 09/23/23 22:25 Infused ONCE ONE Infusion Medical Decision Making MDM Narrative Medical decision making narrative: This is a very pleasant 78-year-old female presenting to the ER today on her own, by private vehicle from her house. She actually came in with a chief complaint of having headaches. She has been having intermittent fairly brief left parietal headaches off and on for the past several days or couple of weeks. She is not having a headache while she is here in the ER. In terms of the headache: Clinical history as best as I can get it from the patient with suggest possible trigeminal neuralgia. Broad differential is considered. There is no evidence for any head trauma, but head CT is obtained and is fortunately negative for any bleed or skull fracture. No evidence for any scalp infection or shingles. No evidence for otitis media or otitis externa on my exam. No evidence for mastoiditis. Consider carbon monoxide exposure since she lives alone but carboxyhemoglobin level is within normal range. No associated neck pain to suggest cervical artery dissection. Consider possible hemorrhagic or ischemic stroke. No evidence for hemorrhage on CT. No focal deficits on exam to suggest an acute ischemic stroke. If this were an ischemic stroke, there is no clear last known normal time so patient would not be a candidate for thrombolytics or intravascular intervention. Consider possible inpatient brain MRI more thoroughly evaluate for ischemia to look for other etiologies for memory loss. . No fever, leukocytosis, stiff neck to suggest ELECTRICAL INSTRUMENT REPAIRER infection. In fact, she is not actually having headache while she is here in the ER right now. Consider possible temporal arteritis however that the headache seems to be too far posterior to be related to jewish headache. I am not able to get any history that would suggest headache related to mastication or other jaw claudication at this time. In terms of her altered mental status: It sounds like she does have some chronic but mild memory loss and early dementia. This is acute she had from her baseline. Consider possible delirium. Sodium is normal electrolytes are well balanced. Kidney function normal. Blood sugar normal. LFTs and ammonia are normal. Coags such as PT are normal. Urinalysis at is abnormal showing 25 white cells per high-power field. Patient does not recall any previous history of urinary tract infections. Nor does her sister, Jc. This will require treatment with antibiotics. At this point she is hemodynamically stable, has a normal white count and is not febrile. No sepsis physiology. From a standpoint of purely UTI, she would be appropriate to treat at home with outpatient antibiotics. However, when you factor in her acute disorientation and altered mental status, she is clearly not remembering well enough to be reliable to take antibiotics at home. She also be high risk to get lost on her way home head or suffer an accident such as forgetting and leaving the stove on if discharged without adult supervision. We attempted to contact the patient's family to see if they would be able to care for her over the short term and make sure she can be safe at home. Unfortunately her sister, who lives close to her, in [place], is out of town in [place]. Her other closest relative is her daughter who lives in [place]. They tell me that her daughter can fly to [place] tomorrow to be with her mum, but no one can be with her tonight. Therefore hospitalization for initiation of treatment for her UTI as well as for safety in the setting of her dementia and confusion, is necessary. Unfortunately there are no open hospital beds here in [place] today. We are at capacity. Therefore transfer is indicated. Fortunately, we were able to arrange a bed for the patient at the nearest hospital, [facility], in [place]. Excepted by tele hospitalist, Dr. Ramirez. She will be transferred by EMS. Lab Data Labs: Lab Results 09/23/23 09/23/23 Range/Units 20:27 20:41 WBC 5.76 (4.50-11.00) K/uL RBC 4.33 (4.00-5.20) m/uL Hgb 13.1 (12.0-16.0) gm/dL Hct 41.2 (33.0-51.0) % MCV 95 (80-100) fL MCH 30 (26-34) pg MCHC 32 (32-36) gm/dL RDW Coeff of Destiney 12.7 (11.5-15.5) % Plt Count 213 (140-440) K/uL Neut % (Auto) 60.6 (42.0-72.0) % Lymph % (Auto) 26.0 (20-44) % [place] % (Auto) 11.6 H (0.0-11.0) % Eos % (Auto) 1.6 (0.0-7.0) % Baso % (Auto) 0.2 (0.0-3.0) % Neut # (Auto) 3.49 (1.7-7.0) K/uL Lymph # (Auto) 1.50 (0.90-2.90) K/uL [place] # (Auto) 0.70 (0.00-0.90) K/UL Eos # (Auto) 0.09 (0.00-0.50) K/uL Baso # (Auto) 0.01 (0.00-0.30) K/uL Abs Immat Gran (auto) 0.00 (0.00-0.30) K/uL Imm/Tot Granulo (auto) 0.0 % INR 0.93 (0.91-1.10) VBG pH 7.354 (7.32-7.43) VBG pCO2 48 (40-50) mmHG VBG pO2 32.3 (25-47) mmHG VBG HCO3 27 (21-28) mmol/L Carboxyhemoglobin 3.6 (0.0-5.0) % Sodium 137 (135-149) mmol/L Potassium 4.0 (3.6-5.1) mmol/L Chloride 105 (96-114) mmol/L Carbon Dioxide 23 (20-32) mmol/L Anion Gap 9 (7-15) mEq/L BUN 22 (7-30) mg/dL Creatinine 0.7 (0.5-1.5) mg/dL Estimated Creat Clear 45.09 Estimated GFR 88 ml/min Glucose 97 (60-115) mg/dL Lactate 1.2 (0.5-1.9) mmol/L Calcium 9.6 (8.4-10.6) mg/dL Total Bilirubin 0.5 (0.1-1.5) mg/dL AST 23 (12-35) U/L ALT 15 (4-35) U/L Alkaline Phosphatase 88 (40-150) U/L Ammonia < 9.0 L (13.1-30.0) umol/L Total Protein 7.1 (6.0-8.3) g/dL Albumin 4.3 (3.3-5.0) g/dL TSH 1.930 (0.270-4.200) uIU/mL Urine Color Yellow (Yellow) Urine Appearance Clear (Clear) Urine pH 5.5 (5.0-8.5) Ur Specific [place] 1.020 (1.000-1.030) Urine Protein Negative (Negative) Urine Glucose (UA) Negative (Negative) Urine Ketones Trace A (Negative) Urine Blood Trace-lysed A (Negative) Urine Nitrite Negative (Negative) Urine Bilirubin Negative (Negative) Urine Urobilinogen 0.2 (0.2-1.0) Ur Leukocyte Esterase 1+ A (Negative) Urine RBC 0-2 (0-2) Urine WBC 10-25 A (0-5) Ur Squamous Epith Cells Few (None-Few) Urine Bacteria Few A (None) Ethyl Alcohol < 0.01 L (0.01-0.03) % Discharge Plan Discharge Clinical Impression: Dementia, Headache, Acute UTI Prescriptions: No Action baclofen 10 mg tablet 10 mg PO DAILY PRN albuterol sulfate 90 mcg/actuation HFA aerosol inhaler 2 puff INHALATION Q4H PRN azelastine 137 mcg (0.1 %) aerosol,spray 1 spray INTRANASAL DAILY PRN Asmanex HFA 100 mcg/actuation HFA aerosol inhaler 2 puff INHALATION Q12H PRN Follow Up/Referrals: Lina Dean PA-C [Primary Care Provider] -
[2023-09-23 19:51] VITALS: BP 164/83; PULSE 77; O2SAT 98
--- NOTE | 2023-09-23 19:53 | CRLHL7_ITS ---
For Patients: As a result of the Cures Act, medical imaging exams and procedure reports are released immediately into your electronic medical record. You may view this report before your referring provider. If you have questions, please contact your health care provider. INDICATION: Headaches. Altered mental status TECHNIQUE: Noncontrast axial CT of the head is submitted. Compared to prior CT of the head from February 02, 2023. FINDINGS: Mild cerebral atrophy. The ventricles, sulci and gyri are of normal size, shape and contour for age and degree of atrophy. Midline structures are centrally located. No convincing evidence of suspicious intra- or extra-axial fluid collections. Mild patchy regions of decreased attenuation within the periventricular and subcortical white matter of both cerebral hemispheres. IMPRESSION: 1. No radiographic evidence of acute intracranial abnormalities. 2. Mild cerebral atrophy. 3. Mild supratentorial white matter changes that are non-specific, but statistically most likely related to chronic small vessel ischemic disease. Dictated by Lester Fam MD @ 09/23/2023 8:32:18 PM Please note that all CT scans at this facility use dose modulation, iterative reconstruction, and/or weight-based dosing when appropriate to reduce radiation dose to as low as reasonably achievable. Dictated by: Lester Fam MD @ 09/23/2023 20:32:24 (Electronically Signed)
--- NOTE | 2023-09-23 20:00 | ED.NURSE ---
Pt is disoriented and impulsively talkative during assessments, pt is unable to state the day, month, year, or even a recent holiday. MD Nicole notified of this finding.
--- OUTSIDE RECORDS SUMMARY | 2023-09-23 20:31 | XMS_ITS | Clinical Summary ---
Author Name Unknown Organization [facility] Address [place], [place] [address] Care Team Providers Care Industrial Organizational Psychologist Name Role Phone Ollie Lozano MD Unavailable [facility] PT Unavailable Unavailable Lina Dean Primary Care Provider [phone] Allergies Active Allergy Reactions Criticality Noted Date Comments Dust Mites 11/07/2008 Grass Pollen Cough 03/11/2016 Tree And Shrub Pollen Cough 03/11/2016 Medications Medication Sig Dispensed Refills Start Date End Date Status azelastine 137 mcg/actuation (ASTELIN) nasal sprayIndications:Cough Inhale 1 [place] into affected nostril(s) 2 times daily. 90 mL 3 022 Active mometasone 100 mcg/actuation HFAAIndications:Cough Inhale by mouth. 2 puffs twice daily 3 Each 3 022 Active baclofen (LIORESAL) 10 mg tabletIndications:Degen eration of lumbar or lumbosacral intervertebral disc,Lumbar facet arthropathy Take 1 Tablet (10 mg) by mouth once daily if needed (muscle spasm). 90 tablet. 3 022 Active estradioL (VAGIFEM) 10 mcg tab vaginal tabletIndications:Postm enopausal atrophic vaginitis Apply one tablet into vagina every night x 1 week then twice weekly M and TH 30 Tablet 1 023 Active medication order composerIndications:Men opause,Post-menopausal atrophic vaginitis Estriol 0.3% cream compounded. Apply 1 g intravaginally 1-2 times a week 30 g 2 023 Active alendronate (FOSAMAX) 70 mg tabletIndications:Age-r elated osteoporosis without current pathological fracture Take 1 Tablet (70 mg) by mouth once a week in the morning. Take on empty stomach with full glass of water. Do not lie down for 1 hr. 12 Tablet 3 023 Active cholecalciferol (Vitamin D-3) 2,000 unit capsuleIndications:Billie min D deficiency Take 1 Capsule (2,000 units) by mouth once daily. 90 Capsule 3 023 Active acetaminophen (TYLENOL) 325 mg tabletIndications:Statu s post dilation and curettage Take 1-2 Tablets (325-650 mg) by mouth every 4 hours if needed (mild pain). Max acetaminophen dose: 4000mg in 24 hrs. 100 Tablet 0 023 Active atorvastatin (LIPITOR) 10 mg tabletIndications:Pure hypercholesterolemia Take 1 Tablet (10 mg) by mouth at bedtime. 90 Tablet 2 023 Active traMADoL (ULTRAM) 50 mg tabletIndications:Lumba r facet arthropathy Take 1 Tablet (50 mg) by mouth every 6 hours if needed for Pain. 36 Tablet 0 024 Active albuterol HFA (PRO-AIR; VENTOLIN; PROVENTIL) 90 mcg/actuation inhalerIndications:Coug h INHALE 2 PUFFS BY MOUTH EVERY 4 HOURS NEEDED FOR SHORTNESS OF BREATH OR COUGH 6.7 g 1 024 Active albuterol HFA (PRO-AIR; VENTOLIN; PROVENTIL) 90 mcg/actuation inhalerIndications:Coug h Inhale 2 Puffs by mouth every 4 hours if needed for Shortness of Breath 1st choice (cough). 1 Each 0 023 2023 Discontinued Active Problems Problem Noted Date Diagnosed Date Abnormal uterine bleeding due to endometrial chel yp 12/28/2022 Vitamin D deficiency 11/27/2022 Mild depression 07/05/2020 Paroxysmal atrial fibrillation 08/29/2019 Overview: Fall 2018 - started Elliquis. Gi bleed - colonoscopy polyps Elliquis stopped 08/24/2019 see cardiology notes Mixed hyperlipidemia 08/03/2012 Degeneration of cervical intervertebral disc 06/2012 Lumbar facet arthropathy 02/06/2011 Migraine 01/08/2010 Benign neoplasm of colon 11/10/2008 Overview: Colonoscopy 10/2008 polyps repeat in 3 years Colonoscopy 02/2016 polyp repeat in 5 years Colonoscopy 06/2019 polyps, repeat in 5 years SVT (supraventricular tachycardia) 09/26/2008 Overview: A. Paroxysmal Chest pain, unspecified 09/26/2008 Overview: A. Atypical Insomnia, Unspecified 04/27/2008 Degeneration of lumbar or lumbosacral interverte bral disc 04/24/2008 Unspecified asthma(493.90) 03/23/2007 Rosacea 03/23/2007 Symptomatic menopausal or female climacteric sta benjamin 03/23/2007 Resolved Problems Problem Noted Date Diagnosed Date Resolved Date Backache, unspecified 2007 Encounters Date Type Department Care Team Description 09/21/2023 Refill [facility] [address] [place] [address] Lina Dean PA Refill Request (Albuterol inhaler ) 09/20/2023 Refill [facility] [address] [place] [address] Lina Dean PA Refill Request (Albuterol Hfa) 08/18/2023 Refill [facility] [address] [place] [address] Ollie Lozano MD Refill Request from Last 3 Months Immunizations Name Administration Dates Next Due COVID-19 vaccine (Pfizer-Bio NTech 30mcg/0.3mL) 12YO+ BIVALENT PF, MDV 10/20/2022 COVID-19 vaccine (Pfizer-Bio NTech 30mcg/0.3mL) 12YO+ JOSE LUIS-SUCROSE PF, MDV 03/25/2022 COVID-19 vaccine (Pfizer-Bio NTech 30mcg/0.3mL) PF, MDV 08/13/2021,11/07/2020,10/17/2020 HepA-HepB (Twinrix) 03/27/2006,09/22/2005,2005 Influenza, IIV3 (Age >=3 years) 05/21/2010 Influenza, Inactivated AIIV4 (Age 65+ Years) Preserv Free 07/25/2021,07/05/2020 Pneumococcal Conj 20-valent (Prevnar 20) 023 Pneumococcal Poly,23-Valent (Pneumovax) 07/05/20 20 Td (Age >=7 Years) 07/18/2003 Tdap 09/24/2010 Typhoid (injectable) 11/27/2010 Family History Medical History Relation Name Comments Heart Disease Father heavy smoker Cancer Maternal Aunt ovarian cancer at age 89 yrs. Diabetes Mother later in life Cancer-breast Other Niece Heart Disease Paternal Aunt Other Sister emphysema, diag nosed 67yr, heavy smoker Cancer-ovarian No Family History Relation Name Status Comments Father Maternal Aunt Mother Other Niece Alive Paternal Aunt Sister Social History Tobacco Use Types Packs/Day Years Used Date Smoking Tobacco: Never Smokeless Tobacco: Never Tobacco Cessation:Counseling Given: Yes Alcohol Use Standard Drinks/Week Comments Yes 0 (1 standard drink = 0.6 oz pur e alcohol) Occasionally PHQ-2 Answer Date Recorded PHQ-2 TOTAL SCORE 0 10/20/2022 Social Connections Answer Date Recorded Frequency of Communication with Friends and Fami ly Not on file 12/15/2022 Financial Resource Strain Answer Date R ecorded Difficulty of Paying Living Expenses 3 12/12/2021 Difficulty of Paying Living Expenses Not on file 12/12/2021 Food Insecurity Answer Date Recorded Worried About Running Out of Food in the Last Ye ar 1 12/12/2021 Transportation Needs Answer Date Record ed Lack of Transportation (Medical) 1 12/12/2021 Housing Stability Answer Date Recorded Unable to Pay for Housing in the Last Year 1 12/12/2021 Sex and Gender Information Value Date Recorded Sex Assigned at Not on file Gender Identity Not on file Sexual Orientation Not on file Obstetrics History Para Term AB IAB SAB Ectopic Multiple Livin g Live Births 2 1 1 1 1 Date Outcome GA Total Labor Labor/2nd/3rd Weight Sex Delivery Anes PTL Lindsay A1 A5 Name Cl in Ectopic Para Last Filed Vital Signs Vital Sign Reading Time Taken Comments Blood Pressure 116/57 12/29/2022 11:15 AM CDT Pulse 58 12/29/2022 11:15 AM CDT Temperature 36.4 ??C (97.5 ??F) 12/29/2022 10:33 AM C DT Respiratory Rate 20 12/29/2022 10:33 AM CDT Oxygen Saturation 99% 12/29/2022 11:15 AM CDT Inhaled Oxygen Concentration - - Weight 73.3 kg (161 lb 8 oz) 12/29/2022 8:51 AM CDT Height 170.2 cm (5' 7) 12/29/2022 8:51 AM CDT Body Mass Index 25.29 12/29/2022 8:51 AM CDT Plan of Treatment Health Maintenance Due Date Last Done Comments Zoster (shingles) series for age 50+ (1 of 2) 1995 Tetanus booster 09/24/2020 09/24/2010, 07/18/2003 COVID-19 vaccine series ( season) 2023 10/20/2022, 03/25/2022, 08/13/2021, Additional history exists Influenza for age 65+ 04/17/2023 07/25/2021 , 07/05/2020, 05/21/2010 Medicare Wellness for age 65+ 10/21/2023, 03/06/2021, 01/22/2016, Additional history exists Depression screening for age 12+ 10/23/2023 10/22/2022, 10/20/2022, 10/20/2022, Additional history exists BMI (ht and wt on same day) for age 18+ 12/24/2023 12/23/2022, 11/19/2022, 10/20/2022, Additional history exists Tdap Completed 09/24/2010 Hepatitis C screening for ag e 18-79 Completed 03/06/2021 DEXA/DXA scan for age 65+ Completed 10/20/2022 Pneumococcal series for age 65+ Completed , 07/05/2020 Advance Directives Latest Code Status on File Code Status Date Activated Date Inactivated Comments Full Code 12/29/2022 8:41 AM 12/29/2022 1:38 PM Question Answer Comments Code Status Discussion: Reviewed Preferences Care Teams Industrial Organizational Psychologist Relationship Specialty Start Date End Date Lina Dean PA [address] [place] [address] PCP - General Physician Cab Driver 12/23/22 Ollie Lozano MD [address] [place] [address] Sports Medicine 01/22/16 Jag [facility] PT Physical Therapist 01/22/16
[2023-09-23 20:38] LABS: HCO3 VBG 27 mmol/L (21-28); Hematocrit 41.2 % (33.0-51.0); Hemoglobin* 13.1 gm/dL (12.0-16.0); Lactate* 1.2 mmol/L (0.5-1.9); Mean Corpuscular HGB Conc 32 gm/dL (32-36); Mean Corpuscular Hemoglobin 30 pg (26-34); Mean Corpuscular Volume 95 fL (80-100); Neutrophils Percent Auto 60.6 % (42.0-72.0); PCO2 VBG 48 mmHG (40-50); PO2 VBG 32.3 mmHG (25-47); Platelet Count* 213 K/uL (140-440); RDW Coefficient of Variation % 12.7 % (11.5-15.5); Red Blood Count 4.33 m/uL (4.00-5.20); White Blood Count* 5.76 K/uL (4.50-11.00); pH VBG 7.354 (7.32-7.43)
[2023-09-23 20:39] LABS: Basophils Absolute Auto 0.01 K/uL (0.00-0.30); Basophils Percent Auto 0.2 % (0.0-3.0); Eosinophils Absolute Auto 0.09 K/uL (0.00-0.50); Eosinophils Percent Auto 1.6 % (0.0-7.0); Monocytes Percent Auto 11.6 % (0.0-11.0); Neutrophils Absolute Auto 3.49 K/uL (1.7-7.0)
[2023-09-23 20:41] LABS: Slide Review Reflex No
[2023-09-23 20:59] LABS: Carboxyhemoglobin* 3.6 % (0.0-5.0)
[2023-09-23 20:59] LABS: INR 0.93 (0.91-1.10)
[2023-09-23 21:02] LABS: Appearance Urine Clear (Clear); Bilirubin Urine Negative (Negative); Blood Urine Trace-lysed (Negative); Color Urine Yellow (Yellow); Glucose Urine Negative (Negative); Ketones Urine Trace (Negative); Leukocyte Esterase Urine 1+ (Negative); Nitrite Urine Negative (Negative); Protein Urine Negative (Negative); Urobilinogen Urine 0.2 (0.2-1.0); pH Urine 5.5 (5.0-8.5)
[2023-09-23 21:06] LABS: Ammonia* < 9.0 umol/L (13.1-30.0); Ethanol* < 0.01 % (0.01-0.03)
[2023-09-23 21:39] LABS: Anion Gap 9 mEq/L (7-15); Blood Urea Nitrogen* 22 mg/dL (7-30); Carbon Dioxide* 23 mmol/L (20-32); Chloride* 105 mmol/L (96-114); Creatinine* 0.7 mg/dL (0.5-1.5); Est. Creatinine Clearance* 45.09; Estimated Glomerular Filt Rate 88 ml/min; Sodium* 137 mmol/L (135-149)
[2023-09-23 21:40] LABS: Alanine Aminotransferase* 15 U/L (4-35); Albumin* 4.3 g/dL (3.3-5.0); Alkaline Phosphatase* 88 U/L (40-150); Aspartate Amino Transferase* 23 U/L (12-35); Bilirubin Total* 0.5 mg/dL (0.1-1.5); Calcium* 9.6 mg/dL (8.4-10.6); Glucose* 97 mg/dL (60-115); Total Protein* 7.1 g/dL (6.0-8.3)
[2023-09-23 21:52] LABS: RBC Urine 0-2 (0-2)
[2023-09-23 21:53] LABS: Bacteria Urine Few; Squamous Epithelial Cell Urine Few (None-Few)
[2023-09-23 22:00] VITALS: O2SAT 99
[2023-09-23 22:22] VITALS: BP 178/82; PULSE 75; O2SAT 99
[2023-09-23] MEDS: HALOPERIDOL 5 MG/ML INJ 1.25 MG IV (22:39)
--- NOTE | 2023-09-23 22:39 | ED.NURSE ---
Pt is becoming noticeably more confused and disoriented. Pt is repeating questions every few mins: repeatedly asking when she can go home, repeatedly asking if her bladder infection is contagious, etc. Pt is still pleasant and cooperative. updated.
[2023-09-23] MEDS: cefTRIAXone 1 GM in 0.9 % SODIUM CHLORIDE Mini-bag 100 ML IVPB (22:45)
--- NOTE | 2023-09-23 23:51 | ED.NURSE ---
nurse to nurse report given to Alysha GARCIA at [facility]. pt assigned to [phone]. call back number is [phone]
--- NOTE | 2023-09-23 23:57 | ED.NURSE ---
updated dtr mela on pt transfer to [facility].
[2023-09-24 00:59] VITALS: BP 154/77; PULSE 71; RESP 16; TEMP 36.7; O2SAT 99
[2023-09-24 02:00] VITALS: BP 141/74; PULSE 69; RESP 16; TEMP 36.7; O2SAT 99
[2023-09-24 03:02] VITALS: BP 141/74; PULSE 69; RESP 16; TEMP 36.7
== END 2023-09-24 02:00 | disposition other institution (70) ==
PROVIDERS: Emergency Provider Emergency Medicine; PCP Student in an Organized Health Care Education/Training Program
DX: F03.90 Unspecified dementia, unspecified severity, without behavioral disturbance, psychotic disturbance, mood disturbance, and anxiety (principal); R51.9 Headache, unspecified; N39.0 Urinary tract infection, site not specified
CPT/HCPCS: 36415; 70450; 80053; 81001; 82077; 82140; 82375; 82803; 83605; 84443; 85025; 85610; 87040; 87086; 94761; 96365; 96375; 99285; J0696; J1630

== ENCOUNTER 2023-09-24 02:09 | Outpatient (CLI) | payer MEDICARE, SELFPAY ==
--- OUTSIDE RECORDS SUMMARY | 2023-09-25 17:30 | XMS_ITS | Clinical Summary ---
Author Name Unknown Organization [facility] Address [place], [place] [address] Care Team Providers Care Manager Wound Name Role Phone Ollie Lozano MD Unavailable Jag Koo PT Unavailable Unavailable Lina Dean Primary Care Provider [phone] Allergies Active Allergy Reactions Criticality Noted Date Comments Dust Mites 11/07/2008 Grass Pollen Cough 03/11/2016 Tree And Shrub Pollen Cough 03/11/2016 Medications Medication Sig Dispensed Refills Start Date End Date Status medication order composerIndications:Men opause,Post-menopausal atrophic vaginitis Estriol 0.3% cream compounded. Apply 1 g intravaginally 1-2 times a week 30 g 2 023 Active cholecalciferol (Vitamin D-3) 2,000 unit [...] OR COUGH 6.7 g 1 024 Active cefuroxime axetil (CEFTIN) 500 mg tabletIndications:Urina ry tract infection without hematuria, site unspecified Take 1 Tablet (500 mg) by mouth two times daily for 5 days. 10 Tablet 0 024 2023 Active carbamide peroxide (DEBROX) 6.5 % otic solutionIndications:Imp acted cerumen, unspecified laterality Place 5 Drops into both ears two times daily for 5 days. 15 mL 0 024 2023 Active azelastine 137 mcg/actuation (ASTELIN) nasal sprayIndications:Cough Inhale 1 [place] into affected nostril(s) 2 times daily. 90 mL 3 022 2023 Discontinued(P harmacist change per medication history (E-cancel not sent)) mometasone 100 mcg/actuation HFAAIndications:Cough Inhale by mouth. 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 90 tablet. 3 022 2023 Discontinued(P harmacist change per medication history (E-cancel not sent)) estradioL (VAGIFEM) 10 mcg tab vaginal tabletIndications:Postm enopausal atrophic vaginitis Apply one tablet into vagina every night x 1 week then twice weekly M and TH 30 Tablet 1 023 2023 Discontinued(P harmacist change per medication history (E-cancel not sent)) alendronate (FOSAMAX) 70 mg tabletIndications:Age-r elated osteoporosis without current pathological fracture Take 1 Tablet (70 mg) by mouth once a week in the morning. Take on empty stomach with full glass of water. Do not lie down for 1 hr. 12 Tablet 3 023 2023 Discontinued(P harmacist change per medication history (E-cancel not sent)) albuterol HFA (PRO-AIR; VENTOLIN; PROVENTIL) 90 mcg/actuation inhalerIndications:Coug h Inhale 2 Puffs by mouth every 4 hours if needed for Shortness of Breath 1st choice (cough). 1 Each 0 023 2023 Discontinued Active Problems Problem Noted Date Diagnosed Date Acute cystitis 09/24/2023 Closed head injury 09/24/2023 Fatigue 09/24/2023 Abnormal uterine bleeding due to endometrial chel [...] Encounters Date Type Department Care Team Description 09/24/2023 2:46 AM PROFESSOR OF GEOGRAPHY - 09/25/2023 1:00 PM [facility] [[email or web address] Hospital Encounter [facility] [address] [place] [address] Kevin Christiansen MD Cudak, Austin Christopher, DO Urinary tract infection without hematuria, site unspecified (Primary Dx); Impacted cerumen, unspecified laterality; Memory impairment Discharge Disposition: Home Self Care 09/24/2023 Orders Only [facility] Scanner 1 scan: (1-Ord) INCOMING RECORDS-CT, [facility], 09/24/2023 09/24/2023 Travel 09/21/2023 Refill [facility] [address] [place] [address] Lina Dean PA Refill Request (Albuterol inhaler ) 09/20/2023 Refill [facility] [address] [place] [address] Lina Dean PA Refill Request (Albuterol Hfa) 08/18/2023 Refill [facility] [address] [place] [address] Ollie Lozano MD Refill Request from Last [...] of Communication with Friends and Fami ly 0 09/24/2023 Financial Resource Strain Answer Date R ecorded Difficulty of Paying Living Expenses 3 09/24/2023 Difficulty of Paying Living Expenses Not on file 09/24/2023 Food Insecurity Answer Date Recorded Worried About Running Out of Food in the Last Ye ar 1 09/24/2023 Transportation Needs Answer Date Record ed Lack of Transportation (Medical) 1 09/24/2023 Housing Stability Answer Date Recorded Unable to Pay for Housing in the Last Year 1 09/24/2023 Sex and Gender Information Value Date Recorded [...] Sign Reading Time Taken Comments Blood Pressure 138/83 09/25/2023 8:14 AM PROFESSOR OF GEOGRAPHY Pulse 73 09/25/2023 8:14 AM PROFESSOR OF GEOGRAPHY Temperature 36.8 ??C (98.2 ??F) 09/25/2023 8:14 AM CS T Respiratory Rate 16 09/25/2023 8:14 AM PROFESSOR OF GEOGRAPHY Oxygen Saturation 96% 09/25/2023 8:14 AM PROFESSOR OF GEOGRAPHY Inhaled Oxygen Concentration - - Weight 73.9 kg (162 lb 14.4 oz) 09/24/2023 2:54 AM PROFESSOR OF GEOGRAPHY Height 170.2 cm (5' 7) 12/29/2022 8:51 AM CDT Body Mass Index 25.51 12/29/2022 8:51 AM CDT Plan of Treatment Upcoming Encounters Date Type Department Care Team (Late st Contact Info) Description 09/30/2023 11:35 AM PROFESSOR OF GEOGRAPHY Office Visit [facility] [address] [place] [address] Lina Dean PA [address] [place] [address] 02/16/2024 8:30 AM CDT Office Visit [facility] [address] [place] [address] Dada Sood, PhD, LP [address] [place] [address] Health Maintenance Due Date Last Done Comments [...] 10/20/2022 Pneumococcal series for age 65+ Completed 3, 07/05/2020 Procedures Procedure Name Priority Date/Time Associated Diagnosis Comments MR HEAD BRAIN WO STAT 09/25/2023 8:40 AM PROFESSOR OF GEOGRAPHY HEMOGLOBIN Early AM 09/25/2023 6:01 AM PROFESSOR OF GEOGRAPHY WHITE BLOOD COUNT Early AM 09/25/2023 6:0 1 AM PROFESSOR OF GEOGRAPHY CREATININE Early AM 09/25/2023 6:01 AM PROFESSOR OF GEOGRAPHY POTASSIUM Early AM 09/25/2023 6:01 AM PROFESSOR OF GEOGRAPHY SODIUM Early AM 09/25/2023 6:01 AM PROFESSOR OF GEOGRAPHY AMMONIA Early AM 09/25/2023 6:00 AM PROFESSOR OF GEOGRAPHY BLOOD GAS,VENOUS Early AM 09/25/2023 6:00 AM PROFESSOR OF GEOGRAPHY HEPATIC FUNCTION PANEL TAYLOR 09/24/2023 5:46 AM PROFESSOR OF GEOGRAPHY TSH TAYLOR 09/24/2023 5:46 AM PROFESSOR OF GEOGRAPHY MAGNESIUM TAYLOR 09/24/2023 5:46 AM PROFESSOR OF GEOGRAPHY CBC W PLT NO DIFF Early AM 09/24/2023 5:4 6 AM PROFESSOR OF GEOGRAPHY BASIC METABOLIC PANEL Early AM 09/24/2023 5:46 AM PROFESSOR OF GEOGRAPHY SCAN CORRESP-IMAGING 09/24/2023 12:00 AM PROFESSOR OF GEOGRAPHY from Last 3 Months Results * MR HEAD BRAIN WO (09/25/2023 8:40 AM PROFESSOR OF GEOGRAPHY) Anatomical Region Laterality Modality BRAIN, HEAD Magnetic Resonan ce 09/25/2023 8:52 AM PROFESSOR OF GEOGRAPHY Narrative 09/25/2023 8:52 AM PROFESSOR OF GEOGRAPHY For Patients: ??As a result of the Cures Act, medical imaging exams and procedure reports are released immediately into your electronic medical record. ??You may view this report before your referring provider. ??If you have questions, please contact your health care provider. Indication: Headache, mental status change Technique: Multiplanar, multisequence MRI of the brain obtained without contrast. Comparison: CT head report 09/23/2023, MRI brain 12/06/2017 Findings: The ventricles and cortical sulci are slightly prominent, compatible with generalized cerebral volume loss. No hydrocephalus or herniation. No acute/subacute ischemia, intracranial hemorrhage or abnormal extra-axial fluid collection. A few punctate FLAIR hyperintense foci are noted throughout the supratentorial white matter, similar to 2019. Midline structures are unremarkable. Major expected intracranial flow voids are visualized. Bone marrow signal is unremarkable. No suspicious findings in the regional soft tissues. Small mucous retention cysts/polyps along the inferior maxillary sinuses. Normal signal throughout the mastoid air cells. Bilateral temporal staphylomas and lens implants. Impression : 1. No evidence of acute intracranial abnormality, or significant interval change related to 12/06/2018. 2. A few scattered foci of FLAIR signal abnormality are noted throughout the supratentorial white matter, stable. These are nonspecific, but can be seen in the setting of migraine headaches, previous trauma, or mild chronic microangiopathy. 3. Bilateral temporal staphylomas, stable. Dictated by Delma Dodson MD @ 09/25/2023 8:52:49 AM (Electronically Signed) Procedure Note Delma Dodson, - 09/25/2023 For Patients: As a result of the Cures Act, medical imagingexams and procedure reports are released immediately into your electronicmedical record. You may view this report before your referring provider.If you have questions, please contact your health care provider. Indication: Headache, mental status change Technique: Multiplanar, multisequence MRI of the brain obtained without contrast. Comparison: CT head report 09/23/2023, MRI brain 12/06/2017 Findings: The ventricles and cortical sulci are slightly prominent, compatible withgeneralized cerebral volume loss. No hydrocephalus or herniation. Noacute/subacute ischemia, intracranial hemorrhage or abnormal extra-axialfluid collection. A few punctate FLAIR hyperintense foci are notedthroughout the supratentorial white matter, similar to 2019. Midline structures are unremarkable. Major expected intracranial flowvoids are visualized. Bone marrow signal is unremarkable. No suspiciousfindings in the regional soft tissues. Small mucous retention cysts/polypsalong the inferior maxillary sinuses. Normal signal throughout the mastoidair cells. Bilateral temporal staphylomas and lens implants. Impression : 1. No evidence of acute intracranial abnormality, or significant intervalchange related to 12/06/2018. 2. A few scattered foci of FLAIR signal abnormality are noted throughoutthe supratentorial white matter, stable. These are nonspecific, but can beseen in the setting of migraine headaches, previous trauma, or mildchronic microangiopathy. 3. Bilateral temporal staphylomas, stable. Dictated by Delma Dodson MD @ 09/25/2023 8:52:49 AM (Electronically Signed) Glenn Baca DO MR * WHITE BLOOD COUNT (09/25/2023 6:01 AM PROFESSOR OF GEOGRAPHY) WHITE BLOOD COUNT 4.7 4.5 - 11.0 thou/cu mm 09/25/2023 6:13 AM PROFESSOR OF GEOGRAPHY [facility] Blood BLOOD SPECIMEN / Unknown Venipuncture / Unknown 09/25/2023 6:01 AM PROFESSOR OF GEOGRAPHY 09/25/2023 6:07 AM PROFESSOR OF GEOGRAPHY Glenn Baca DO HEMATOLOGY [facility] [address] [place] [address] * (ABNORMAL) HEMOGLOBIN (09/25/2023 6:01 AM PROFESSOR OF GEOGRAPHY) HEMOGLOBIN 11.7(L) 12.0 - 16.0 g/dL 09/25/2023 6:13 AM PROFESSOR OF GEOGRAPHY [facility] MCV 95 80 - 100 fL 09/25/2023 6:13 AM [facility] Blood BLOOD SPECIMEN / Unknown Venipuncture / Unknown 09/25/2023 6:01 AM PROFESSOR OF GEOGRAPHY 09/25/2023 6:07 AM PROFESSOR OF GEOGRAPHY Glenn Baca DO HEMATOLOGY Performing Organization Address [facility]/ZIP Co de Phone Number [facility] [address] [place] [address] * SODIUM (09/25/2023 6:01 AM PROFESSOR OF GEOGRAPHY) SODIUM 144 136 - 145 mmol/L 09/25/2023 6:46 AM [facility] Blood BLOOD SPECIMEN / Unknown Venipuncture / Unknown 09/25/2023 6:01 AM PROFESSOR OF GEOGRAPHY 09/25/2023 6:07 AM PROFESSOR OF GEOGRAPHY Glenn Baca DO CHEMISTRY Performing Organization Address [facility] Co de Phone Number [facility] [address] [place] [address] * POTASSIUM (09/25/2023 6:01 AM PROFESSOR OF GEOGRAPHY) Pathologist [facility] POTASSIUM 3.8 3.5 - 5.1 mmol/L 09/25/2023 6:46 AM [facility] Blood BLOOD SPECIMEN / Unknown Venipuncture / Unknown 09/25/2023 6:01 AM PROFESSOR OF GEOGRAPHY 09/25/2023 6:07 AM PROFESSOR OF GEOGRAPHY Glenn Baca DO CHEMISTRY Performing Organization Address [facility] Co de Phone Number [facility] [address] [place] [address] * (ABNORMAL) CREATININE (09/25/2023 6:01 AM PROFESSOR OF GEOGRAPHY) eGFR 89(L) >90 mL/min/1.7 3m2 09/25/2023 6:46 AM [facility] Comment:As of 2021, eG FR is calculated by the CKD-EPI creatinine equation without race adjustment. ??eGFR can be influenced by muscle mass, exercise, and diet. ??The reported eGFR is an estimation only and is only applicable if the renal function is stable. CREATININE 0.69 0.50 - 0.90 mg/dL 09/25/2023 6:46 AM [facility] Blood BLOOD SPECIMEN / Unknown Venipuncture / Unknown 09/25/2023 6:01 AM PROFESSOR OF GEOGRAPHY 09/25/2023 6:07 AM PROFESSOR OF GEOGRAPHY Glenn Umeshsyed Baca DO CHEMISTRY [facility] [address] [place] [address] * (ABNORMAL) BLOOD GAS,VENOUS (09/25/2023 6:00 AM PROFESSOR OF GEOGRAPHY) PH, VENOUS 7.42 7.32 - 7.43 09/25/2023 6:12 AM [facility] PCO2, VENOUS 44 41 - 51 mmHg 09/25/2023 6:12 AM [facility] PO2, VENOUS 48(H) 35 - 40 mmHg 09/25/2023 6:12 AM [facility] HCO3,VENOUS 29 22 - 29 mmol/L 09/25/2023 6:12 AM [facility] BASE EXCESS, VENOUS, POCT 3.4(H) -2.0 - 3.0 09/25/2023 6:12 AM [facility] O2 SATURATION, VENOUS 83(H) 70 - 75 % 09/25/2023 6:12 AM [facility] PATIENT TEMPERATURE 37.0 Degrees C 09/25/2023 6:12 AM [facility] Blood VENOUS BLOOD SPECIMEN / Unknown Venipuncture / Unknown 09/25/2023 6:00 AM PROFESSOR OF GEOGRAPHY 09/25/2023 6:07 AM PROFESSOR OF GEOGRAPHY Glenn Baca DO CHEMISTRY [facility] [address] [place] [address] * AMMONIA (09/25/2023 6:00 AM PROFESSOR OF GEOGRAPHY) AMMONIA 26 16 - 60 umol/L 09/25/2023 6:45 AM [facility] Blood BLOOD SPECIMEN / Unknown Venipuncture / Unknown 09/25/2023 6:00 AM PROFESSOR OF GEOGRAPHY 09/25/2023 6:07 AM PROFESSOR OF GEOGRAPHY [facility] - 09/25/2023 6:45 AM PROFESSOR OF GEOGRAPHY 1. ??Sulfasalazine and its metabolite Sulfapyridine at therapeutic concentrations may lead to falsely low results. 2. ??Temozolomide and its metabolite MTIC may lead to falsely elevated results, and its metabolite AIC may lead to falsely low results. Glenn Baca DO CHEMISTRY Performing Organization Address [facility] de Phone Number [facility] [address] [place] [address] * TSH (09/24/2023 5:46 AM PROFESSOR OF GEOGRAPHY) [facility] TSH 2.47 0.27 - 4.20 uIU/mL 09/24/2023 3:54 PM PROFESSOR OF GEOGRAPHY [facility] Blood BLOOD SPECIMEN / Unknown Venipuncture / Unknown 09/24/2023 5:46 AM PROFESSOR OF GEOGRAPHY 09/24/2023 6:43 AM PROFESSOR OF GEOGRAPHY [facility] - 09/24/2023 3:54 PM PROFESSOR OF GEOGRAPHY In Adults, TSH values between 5.00 and 10.00 uIU/ml do not necessarily indicate the presence of Hypothyroidism. Correlation with clinical findings such as presence of goiter and/or Thyroperoxidase (TPO) Antibody may be helpful. For more information please refer to FLAVIA 2004; 291: 228-238. Glenn Baca DO CHEMISTRY Performing Organization Address [facility] Co de Phone Number [facility] [address] [place] [address] * (ABNORMAL) CBC W PLT NO DIFF (09/24/2023 5:46 AM PROFESSOR OF GEOGRAPHY) [facility] WHITE BLOOD COUNT 4.2(L) 4.5 - 11.0 thou/cu mm 09/24/2023 8:11 AM PROFESSOR OF GEOGRAPHY [facility] RED BLOOD COUNT 3.88(L) 4.00 - 5.20 mil/cu mm 09/24/2023 8:11 AM [facility] HEMOGLOBIN 11.8(L) 12.0 - 16.0 g/dL 09/24/2023 8:11 AM [facility] HEMATOCRIT 36.6 33.0 - 51.0 % 09/24/2023 8:11 AM [facility] MCV 94 80 - 100 fL 09/24/2023 8:11 AM [facility] MCH 30.4 26.0 - 34.0 pg 09/24/2023 8:11 AM [facility] MCHC 32.2 32.0 - 36.0 g/dL 09/24/2023 8:11 AM [facility] RDW 13.0 11.5 - 15.5 % 09/24/2023 8:11 AM [facility] PLATELET COUNT 192 140 - 440 thou/cu mm 09/24/2023 8:11 AM [facility] MPV 11.5(H) 6.5 - 11.0 fL 09/24/2023 8:11 AM [facility] Blood BLOOD SPECIMEN / Unknown Venipuncture / Unknown 09/24/2023 5:46 AM PROFESSOR OF GEOGRAPHY 09/24/2023 6:42 AM PROFESSOR OF GEOGRAPHY Kevin Christiansen MD HEMATOLO GY [facility] [address] [place] [address] * MAGNESIUM (09/24/2023 5:46 AM PROFESSOR OF GEOGRAPHY) MAGNESIUM 2.3 1.6 - 2.4 mg/dL 09/24/2023 4:09 PM [facility] Blood BLOOD SPECIMEN / Unknown Venipuncture / Unknown 09/24/2023 5:46 AM PROFESSOR OF GEOGRAPHY 09/24/2023 6:43 AM PROFESSOR OF GEOGRAPHY Glenn Baca DO CHEMISTRY [facility] [address] [place] [address] * (ABNORMAL) HEPATIC FUNCTION PANEL (09/24/2023 5:46 AM PROFESSOR OF GEOGRAPHY) ALBUMIN 3.9(L) 4.0 - 4.9 g/dL 09/24/2023 3:54 PM [facility] PROTEIN,TOTAL 6.4 6.0 - 8.0 g/dL 09/24/2023 3:54 PM [facility] BILIRUBIN,TOTAL 0.3 0.0 - 1.2 mg/dL 09/24/2023 3:54 PM [facility] BILIRUBIN,DIRECT <0.2 0.0 - 0.3 mg/dL 09/24/2023 3:54 PM [facility] BILIRUBIN,INDIRE CT 09/24/2023 3:54 PM [facility] Comment:Unable to calculate, Direct Bili <0.2 ALK PHOSPHATASE 84 35 - 104 IU/L 09/24/2023 3:54 PM [facility] ALT (SGPT) 9(L) 10 - 35 IU/L 09/24/2023 3:54 PM [facility] AST (SGOT) 17 10 - 35 IU/L 09/24/2023 3:54 PM [facility] Blood BLOOD SPECIMEN / Unknown Venipuncture / Unknown 09/24/2023 5:46 AM PROFESSOR OF GEOGRAPHY 09/24/2023 6:43 AM PROFESSOR OF GEOGRAPHY Glenn Baca DO CHEMISTRY [facility] [address] [place] [address] * (ABNORMAL) BASIC METABOLIC PANEL (09/24/2023 5:46 AM PROFESSOR OF GEOGRAPHY) Pathologist [facility] SODIUM 142 136 - 145 mmol/L 09/24/2023 9:26 AM [facility] POTASSIUM 3.8 3.5 - 5.1 mmol/L 09/24/2023 9:26 AM [facility] CHLORIDE 108(H) 98 - 107 mmol/L 09/24/2023 9:26 AM [facility] CO2,TOTAL 26 22 - 29 mmol/L 09/24/2023 9:26 AM [facility] ANION GAP 8 5 - 18 09/24/2023 9:26 AM [facility] GLUCOSE 96 70 - 99 mg/dL 09/24/2023 9:26 AM [facility] CALCIUM 9.3 8.8 - 10.2 mg/dL 09/24/2023 9:26 AM [facility] BUN 18 8 - 23 mg/dL 09/24/2023 9:26 AM [facility] CREATININE 0.82 0.50 - 0.90 mg/dL 09/24/2023 9:26 AM [facility] BUN/CREAT RATIO 22(H) 10 - 20 9:26 AM [facility] eGFR 73(L) >90 mL/min/1.7 3m2 09/24/2023 9:26 AM [facility] Comment:As of 2021, eG FR is calculated by the CKD-EPI creatinine equation without race adjustment. ??eGFR can be influenced by muscle mass, exercise, and diet. ??The reported eGFR is an estimation only and is only applicable if the renal function is stable. Blood BLOOD SPECIMEN / Unknown Venipuncture / Unknown 09/24/2023 5:46 AM PROFESSOR OF GEOGRAPHY 09/24/2023 6:43 AM PROFESSOR OF GEOGRAPHY Kevin Christiansen MD CHEMISTR Y [facility] [address] [place] [address] * SCAN CORRESP-IMAGING (09/24/2023 12:00 AM PROFESSOR OF GEOGRAPHY) Anatomical Region Laterality Modality Other Scanner OTHER from Last 3 Months Advance Directives Latest Code Status on File Code Status Date Activated Date Inactivated Comments Full Code 09/24/2023 3:39 AM 09/25/2023 3:11 PM Question Answer Comments Code Status Discussion: Reviewed Preferences Code Status History Code Status Date Activated Date Inactivated Comments Full Code 12/29/2022 8:41 AM 12/29/2022 1:38 PM Question Answer Comments Code Status Discussion: Reviewed Preferences Care Teams Manager Wound Relationship Specialty Start Date End Date Lina Dean PA [address] [place] [address] PCP - General Physician Disease Intervention Specialist 12/23/22 Ollie Lozano MD [address] [place] [address] Sports Medicine 01/22/16 Jag Koo PT Physical Therapist 01/22/16
== END 2023-09-24 02:10 | disposition home or self-care (01) ==
PROVIDERS: PCP Student in an Organized Health Care Education/Training Program; Visit Provider Family Medicine
DX: N39.0 Urinary tract infection, site not specified (principal)
CPT/HCPCS: A0425; A0428

== ENCOUNTER 2023-10-22 11:00 | Outpatient (RCR) | payer MEDICARE, SELFPAY | END 2024-02-19 23:59 | disposition home or self-care (01) | PROVIDERS: PCP Student in an Organized Health Care Education/Training Program; Visit Provider Family Medicine | DX: R41.89 Other symptoms and signs involving cognitive functions and awareness (principal); Z51.89 Encounter for other specified aftercare | CPT/HCPCS: 97165; 97535 ==

== ENCOUNTER 2024-05-30 13:18 | Emergency (ER) | payer MEDICARE, SELFPAY ==
[2024-05-30 13:24] VITALS: BP 163/83; PULSE 75; RESP 16; TEMP 36; O2SAT 98; BMI 25.0
--- NOTE | 2024-05-30 13:31 | ED_ITS ---
HPI - Extremity Injury (Lower) General Time Seen by Provider: 13:31 Date Seen: 05/30/24 Chief Complaint: Extremity Pain/Injury, Lower Stated Complaint: foot pain/swelling Time Seen by Provider: 05/30/24 13:29 Source: patient, RN notes reviewed and old records reviewed Mode of arrival: ambulatory Limitations: no limitations History of Present Illness HPI Narrative: Cecilia is a very pleasant 79-year-old female with a history of dementia per her daughter's report, osteoporosis who comes to the emergency room for evaluation regarding ankle swelling. Cecilia had the onset of left ankle swelling approximately a week ago. She notes that earlier today it was much bigger and she read online that this can be very bad. She is unsure of what she means by that. She has no pain at this time with movement. She does note that 4 days she was walking and she heard a loud crack and felt it in her ankle and it was sore for some time. She does not know that she has had a fracture in the past but states that she has had many injuries from riding horses over the years. She denies shortness of breath, calf tenderness, swelling in the other ankle or history of DVT. Related Data Home Medications ?Medication ?Instructions ?Recorded ?Confirmed albuterol sulfate 90 mcg/actuation 2 puff inhalation Q4H PRN 05/31/22 05/30/24 aerosol inhaler azelastine 137 mcg (0.1 %) nasal 1 spray intranasal DAILY PRN 05/31/22 02/02/23 spray baclofen 10 mg tablet 10 mg PO DAILY PRN 05/31/22 05/30/24 mometasone 100 mcg/actuation HFA 2 puff inhalation Q12H PRN 05/31/22 05/30/24 aerosol inhaler (Asmanex HFA) alendronate 70 mg tablet 70 mg PO .weekly 05/30/24 05/30/24 Allergies Allergy/AdvReac Type Severity Reaction Status Date / Time No Known Drug Allergies Allergy Verified 05/30/24 13:23 Review of Systems Status of ROS: Reports: 10 or more systems reviewed and unremarkable except as noted in History and below PFSH PFSH Social History Smoking Status: Never smoker Do you use any of these nicotine containing products: None Second hand tobacco smoke exposure: No How often do you have a drink containing alcohol: 2-4 times a month How many standard drinks containing alcohol do you have on a typical day: 1 or 2 AUDIT-C Alcohol total score: 2 Non-prescribed substance use: denies use service: No Exam Narrative: Exam Narrative: Alert and oriented. Speech is normal. GCS of 15. Face symmetrical. Heart with regular rate and rhythm. Lungs are clear bilaterally. Abdomen soft. Lower calves without edema. No calf tenderness. Negative Homans sign. Left ankle shows a fullness on the anterior aspect of the lateral malleolus. This is limited to this area. No underlying hematoma. No tenderness over the foot or ankle. Range of motion is full. Const: Vital Signs, click to edit/add: Vital Signs - 24 hr 05/30/24 13:24 Temperature 96.8 F L Pulse Rate [Pulse Oximeter] 75 Respiratory Rate 16 Blood Pressure [Ri ght Upper Arm] 163/83 H Pulse Oximetry 98 Oxygen Delivery Me thod Room Air Documenting provider has reviewed patient's vital signs: yes Course Course ED Course: Differential diagnosis with lower extremity swelling includes but is not limited to heart failure, DVT, dependent edema, underlying injury, gout. At this time will order x-ray. Given the lack of discomfort I do not think we are dealing with gout. No calf swelling or calf tenderness and location does not support DVT. The fact that this is unilateral also goes against the possibility of strictly dependent edema. Vital Signs Vital signs: Initial Vital Signs Temperature 96.8 F L 05/30/24 13:24 Temperature Source Temporal Artery Scan 05/30/24 13:24 Pulse Rate 75 05/30/24 13:24 Respiratory Rate 16 05/30/24 13:24 Blood Pressure 163/83 H 05/30/24 13:24 Blood Pressure Mean 109 H 05/30/24 13:24 Blood Pressure Position Sitting 05/30/24 13:24 Pulse Oximetry 98 05/30/24 13:24 Oxygen Delivery Method Room Air 05/30/24 13:24 Vital Signs Temperature 96.8 F L 05/30/24 13:24 Pulse Rate 75 05/30/24 13:24 Respiratory Rate 16 05/30/24 13:24 Blood Pressure 163/83 H 05/30/24 13:24 Pulse Oximetry 98 05/30/24 13:24 Oxygen Delivery Method Room Air 05/30/24 13:24 Temperature 96.8 F L 05/30/24 13:24 Pulse Rate 75 05/30/24 13:24 Respiratory Rate 16 05/30/24 13:24 Blood Pressure 163/83 H 05/30/24 13:24 Pulse Oximetry 98 05/30/24 13:24 Oxygen Delivery Method Room Air 05/30/24 13:24 MDM - Extremity Injury (Lower) MDM Narrative Medical decision making narrative: 1. Left ankle swelling-I think this most likely represents sequela of an ankle injury. Patient states that she was walking across the room and had a sudden snap in her ankle this past week. Fortunately no ongoing pain today. She has no evidence of lower extremity edema in her calves. No calf tenderness, no history of DVT. She is not experience any any difficulty breathing, have fluid retention or have a history of CHF. Now that she is up standing she is able to walk but has a little bit of a limp with some slight discomfort. I do believe this is likely a soft tissue injury. Would recommend elevation. Icing would be helpful as well. I have asked Trupti to return if she has worsening symptoms. 2. Disposition -home at this time. Encouraged exercise when she is feeling better. She does have osteopenia osteoporosis which we talk about. It is very important to stay strong and prevent falls. She states that she wants to start working out at the gym again and has been able to find rides for somebody to take her to the gym. At this time I would recommend against crutches as I do think this presents a greater risk of fall in patient's case. She has no palpable pain on exam, no bruising and therefore I do think that limited ambulation is appropriate. Medical Records Attestation: I reviewed the patient's medical records. Imaging Data Ankle x-ray: Attestation: I have reviewed the pertinent imaging results. My impression: I do not note any evidence of fracture but do see significant changes consistent with arthritic change. Radiologist's impression: No evidence of fracture. Well-formed plantar heel spur. Diffuse osteopenia. Joint spaces: Joint spaces are well maintained. No degenerative changes. Soft tissues: Lateral soft tissue swelling. Impression: Lateral soft tissue swelling without evidence of fracture. Osteopeni Discharge Plan Discharge Clinical Impression: Left ankle swelling Patient Disposition: Home, Self-Care Condition: Unchanged Additional Instructions: Elevate legs when you are resting. Follow-up with primary clinic if you are worsening. Prescriptions: No Action baclofen 10 mg tablet 10 mg PO DAILY PRN Hold Instructions: ran out albuterol sulfate 90 mcg/actuation HFA aerosol inhaler 2 puff INHALATION Q4H PRN azelastine 137 mcg (0.1 %) aerosol,spray 1 spray INTRANASAL DAILY PRN Asmanex HFA 100 mcg/actuation HFA aerosol inhaler 2 puff INHALATION Q12H PRN alendronate 70 mg tablet 70 mg PO .weekly Follow Up/Referrals: Lina Dean PA-C [Primary Care Provider] - Stand Alone Forms: Digital Guardian Info Instructions
--- NOTE | 2024-05-30 13:35 | CRLHL7_ITS ---
For Patients: As a result of the Century Cures Act, medical imaging exams and procedure reports are released immediately into your electronic medical record. You may view this report before your referring provider. If you have questions, please contact your health care provider. Indication: Left ankle swelling Technique: Left ankle 3 views Comparison: None Findings: Bones: No evidence of fracture. Well-formed plantar heel spur. Diffuse osteopenia. Joint spaces: Joint spaces are well maintained. No degenerative changes. Soft tissues: Lateral soft tissue swelling. Impression: Lateral soft tissue swelling without evidence of fracture. Osteopenia. Dictated by Hector Mccall MD @ 05/30/2024 2:13:06 PM (Electronically Signed)
--- OUTSIDE RECORDS SUMMARY | 2024-05-30 13:52 | XMS_ITS | Clinical Summary ---
Author Organization [facility] Address [place], [place] [address] Care Team Providers Care Grinder Machine Setter Name Role Phone Ollie Lozano MD Unavailable Jag Koo PT Unavailable Unavailable Lina Dean Primary Care Provider [phone] Allergies Active Allergy Reactions Criticality Noted Date Comments Dust Mites 11/07/2008 Grass Pollen Cough 03/11/2016 Tree And Shrub Pollen Cough 03/11/2016 Medications Medication Sig Dispensed Refills Start Date End Date Status medication order composerIndications:Hastings pause,Post-menopausal atrophic vaginitis Estriol 0.3% cream compounded. Apply 1 g intravaginally 1-2 times a week 30 g 2 09/25/19 23 Active acetaminophen (TYLENOL) 325 mg tabletIndications:Status post dilation and curettage Take 1-2 Tablets (325-650 mg) by mouth every 4 hours if needed (mild pain). Max acetaminophen dose: 4000mg in 24 hrs. 100 Tablet 12/30/19 23 Active traMADoL (ULTRAM) 50 mg tabletIndications:Lumbar facet arthropathy Take 1 Tablet (50 mg) by mouth every 6 hours if needed for Pain. 36 Tablet 08/18/19 24 Active Additional Information Patient taking differently:50 mg Oral Q 6H PRN, Pain,As needed, Reported on 12/25/2023 albuterol HFA (PRO-AIR; VENTOLIN; PROVENTIL) 90 mcg/actuation inhalerIndications:Cough Inhale 1-2 Puffs by mouth every 4 hours if needed for Shortness Of Breath or Wheezing. 6.7 g 2 01/01/20 24 Active alendronate (FOSAMAX) 70 mg tabletIndications:Age-re lated osteoporosis without current pathological fracture Take 1 Tablet (70 mg) by mouth once a week in the morning. Take on empty stomach with full glass of water. Do not lie down for 1 hr. 13 Tablet 2 02/23/20 24 Active atorvastatin (LIPITOR) 10 mg tabletIndications:Pure hypercholesterolemia Take 1 Tablet (10 mg) by mouth at bedtime. 90 Tablet 2 02/23/20 24 Active cholecalciferol (Vitamin D-3) 2,000 unit capsuleIndications:Vitam in D deficiency Take 1 Capsule (2,000 units) by mouth once daily. 90 Capsule 2 02/23/20 24 Active Active Problems Problem Noted Date Diagnosed Date Cognitive impairment 12/25/2023 Pure hypercholesterolemia 12/25/2023 Acute cystitis 09/24/2023 Closed head injury 09/24/2023 Fatigue 09/24/2023 Abnormal uterine bleeding due to endometrial chel yp 12/28/2022 Vitamin D deficiency 11/27/2022 Mild depression 07/05/2020 Paroxysmal atrial fibrillation 08/29/2019 Overview (08/29/2019): Fall 2018 - started Elliquis. Gi bleed - colonoscopy polyps Elliquis stopped 08/24/2019 see cardiology notes Mixed hyperlipidemia 08/03/2012 Degeneration of cervical intervertebral disc 06/2012 Lumbar facet arthropathy 02/06/2011 Migraine 01/08/2010 Benign neoplasm of colon 11/10/2008 Overview (06/24/2019): Colonoscopy 10/2008 polyps repeat in 3 years Colonoscopy 02/2016 polyp repeat in 5 years Colonoscopy 06/2019 polyps, repeat in 5 years SVT (supraventricular tachycardia) 09/26/2008 Overview (09/26/2008): A. Paroxysmal Chest pain, unspecified 09/26/2008 Overview (09/26/2008): A. Atypical Insomnia, Unspecified 04/27/2008 Degeneration of lumbar or lumbosacral interverte bral disc 04/24/2008 Unspecified asthma(493.90) 03/23/2007 Rosacea 03/23/2007 Symptomatic menopausal or female climacteric sta benjamin 03/23/2007 Resolved Problems Problem Noted Date Diagnosed Date Resolved Date Backache, unspecified 2007 Encounters Date Type Department Care Team Description 05/06/2024 Telephone [facility] [address] [place] [address] Lina Dean PA Questions 03/02/2024 Orders Only [facility] Scanner 1 scan: (1-Ord) [facility], BIOPSY BY SHAVE METHOD, 03/02/2024 from Last 3 Months Immunizations Name Administration [...] Answer Date Recorded PHQ-2 TOTAL SCORE 0 12/25/2023 Social Connections Answer Date Recorded Frequency of [...] Outcome GA Total Labor Labor/2nd/3rd Weight Sex Type Anes PTL Lindsay A1 A5 Name Clin Ectopic Para Last Filed Vital Signs Vital Sign Reading Time Taken Comments Blood Pressure 116/72 12/25/2023 1:15 PM CDT Pulse 63 12/25/2023 1:15 PM CDT Temperature 36.6 ??C (97.8 ??F) 09/30/2023 2:50 PM CS T Respiratory Rate 16 09/25/2023 8:14 AM BACK SEAM STITCHER Oxygen Saturation 97% 12/25/2023 1:15 PM CDT Inhaled Oxygen Concentration - - Weight 76.4 kg (168 lb 6.4 oz) 12/25/2023 1:15 P M CDT Height 165.3 cm (5' 5.08) 12/25/2023 1:15 PM CD T Body Mass Index 27.96 12/25/2023 1:15 PM CDT Plan of Treatment Upcoming Encounters Date Type Department Care Team (Late st Contact Info) Description 07/05/2024 10:20 AM BACK SEAM STITCHER Office Visit [facility] [address] [place] [address] Jeffery Mccormick MD [address] [place] [address] Health Maintenance Due Date Last Done Comments Zoster (shingles) series for age 50+ (1 of 2) 1995 RSV vaccine for adults or (1 - 1-dose 75+ series) 02/21/2020 Tetanus booster 09/24/2020 09/24/2010, 07/18/2003 Medicare Wellness for age 65+ 10/21/2023, 03/06/2021, 01/22/2016, Additional history exists COVID-19 vaccine series ( season) 2024 10/20/2022, 03/25/2022, 08/13/2021, Additional history exists Influenza for age 65+ 04/17/2024 07/25/2021 , 07/05/2020, 05/21/2010 BMI (ht and wt on same day) for age 18+ 12/24/2024 12/25/2023, 09/30/2023, 12/23/2022, Additional history exists Depression screening for age 12+ 12/24/2024 12/25/2023, 10/22/2022, 10/20/2022, Additional history exists Tdap Completed 09/24/2010 DEXA/DXA scan for age 65+ Completed 10/20/2022 Pneumococcal series for age 65+ Completed , 07/05/2020 Hepatitis C screening for ag e 18-79 Completed 12/25/2023, 03/06/2021 Procedures Procedure Name Priority Date/Time Associated Diagnosis Comments SCAN-OPERATIVE/PROC EDURE REPORT 03/02/2024 12:00 AM CDT ANTI HCV Routine 12/25/2023 2:15 PM CDT Screen for STD (sexually transmitted disease) XR DXA BONE DENSITY 2 SITES AXIAL Routine 10/20/2022 3:05 PM BACK SEAM STITCHER Menopause from Last 3 Months or Most Recently Relevant to Health Maintenance Results * SCAN-OPERATIVE/PROCEDURE REPORT (03/02/2024 12:00 AM CDT) Scanner OTHER * ANTI HCV (12/25/2023 2:15 PM CDT) HEPATITIS C ANTIBODY Non-Reacti ve Non-React lisha 12/25/2023 9:44 PM CDT [email or web address] Comment:Please note, per www .CDC.gov: If a patient is known to be at high risk of HCV infection, or is symptomatic, and the physician's suspicion of HCV infection is high, HCV RNA testing is often employed and is of diagnostic value, even after an initial negative anti-HCV test result. Blood BLOOD SPECIMEN / Unknown Venipuncture / Unknown 12/25/2023 2:15 PM CDT 12/25/2023 2:17 PM CDT Lina AUSTIN SEND OUTS [email or web address] [address] [place] [address], * (ABNORMAL) XR DXA BONE DENSITY 2 SITES AXIAL [39775.1] (10/20/2022 3:05 PM BACK SEAM STITCHER) Anatomical Region Laterality Modality Spine, HIPS, HIPL, HIPR Other Impressions 10/28/2022 7:31 PM CDT Osteoporosis. RECOMMENDATIONS: The National Osteoporosis Foundation recommends pharmacologic treatment for patients with T-scores of -2.5 or less, patients with prior history of fragility fractures, or patients with 10-year probability of greater than 3% at hips or greater than 20% of suffering major osteoporotic fractures. Recommend continued optimization of calcium and vitamin D intake through dietary means and/or supplementation and regular exercise. Consider pharmacologic therapy for osteoporosis. Follow-up bone density reading in 2 years if therapy initiated to assess therapeutic efficacy. Nani Chang [facility]-C [facility] 10/28/2022 Narrative 10/28/2022 7:31 PM CDT For Patients: Results are automatically released to your [employer] ([employer]) account once available, in compliance with federal regulations. This means that you may see your results before your provider has had a chance to review them. Please allow 2-3 business days for your provider to comment on the results. XR DXA Bone Mineral Density (BMD) EXAM LOCATION: [facility] [address] [facility] [address] PATIENT NAME: Trupti Robles DATE OF : 1945 EXAM DATE: 10/20/2022 REQUESTING PROVIDER: Lina Dean PA GENDER AT : female HEIGHT: 5' 5.08 (10/20/2022) WEIGHT: ??161 lb 12.8 oz (10/20/2022) MENOPAUSAL STATUS: Postmenopausal RACE/ETHNICITY: White RISK FACTORS: Family History of Osteoporosis, Height Loss (2 inches or more) and White Race CURRENT MEDICATION FOR BONE LOSS: NONE INDICATION: Post-Menopause COMPARISON DATE(S): 2001 DXA scans are compared to prior studies for a patient only when the two (or more) studies were performed on the same scanner. It is not possible to compare data generated on one scanner to data from another because there are not standards in DXA equipment. This applies even if the two scanners are made by the same pulp grinder feeder. PROCEDURE: Dual-energy x-ray absorptiometry performed with routine technique. Reporting is completed in the form of a T-score. The T-score represents the standard deviation from peak bone mass based on young healthy adult. A Z-score is used for diagnosis in premenopausal women, and for men under the age of 50. FINDINGS: RESULT LUMBAR SPINE L1 - L4 BMD: 1.045 g/cm2 T-Score: - 1.2 Z-Score: + 0.3 Change from prior in 2001: ??Decrease 18.7%. RESULTS FEMUR Left femoral neck BMD: 0.655 g/cm2 T-Score: - 2.8 Z-Score: - 0.9 Change from prior in 2001: ??Decrease 20.4%. Right femoral neck BMD: 0.658 g/cm2 T-Score: - 2.7 Z-Score: - 0.9 Change from prior in 2001: ??Decrease 25.3%. Left hip BMD: 0.638 g/cm2 T-Score: - 2.9 Z-Score: - 1.3 Change from prior in 2001: ??Decrease 25.8%. Right hip BMD: 0.668 g/cm2 T-Score: - 2.7 Z-Score: - 1.0 Change from prior in 2001: ??Decrease 23.4%. WHO criteria: Normal: T-score at or above -1 SD Osteopenia: T-score between -1.1 and -2.4 SD Osteoporosis: T-score at or below -2.5 SD Lina AUSTIN DEXA from Last 3 Months or Most Recently Relevant to Health Maintenance Advance Directives * Full Code (Latest Code Status on File) Date Activated Date Inactivated Comments 09/24/2023 3:39 AM 09/25/2023 3:11 PM Question Answer Comments Code Status Discussion: Reviewed Preferences * Full Code Date Activated Date Inactivated Comments 12/29/2022 8:41 AM 12/29/2022 1:38 PM Question Answer Comments Code Status Discussion: Reviewed Preferences Care Teams Grinder Machine Setter Relationship Specialty Start Date End Date Lina Dean PA [address] [place] [address] PCP - General Physician Sharepoint Application Architect 12/23/22 Ollie Lozano MD [address] [place] [address] Sports Medicine 01/22/16 Jag Koo PT Physical Therapist 01/22/16
== END 2024-05-30 14:33 | disposition home or self-care (01) ==
PROVIDERS: Emergency Provider Family Medicine; PCP Student in an Organized Health Care Education/Training Program
DX: R22.42 Localized swelling, mass and lump, left lower limb (principal)
CPT/HCPCS: 73610; 99283